=== PATIENT | male | born 1940 | race Caucasian/White ===

== ENCOUNTER 2017-04-04 13:33 | Emergency (ER) | payer BC, OTHER ==
[~2017-04-04] VITALS: Ht 175.3 cm; Wt 93.8 kg
[~2017-04-04 13:33] MED LIST: AMLO10TA4 PO; ASPI81TA21 PO; ATEN25TA PO; ATV/1 PO; CITA40TA12 PO; DIPH25CA5 PO; DVN/160 PO; EZET10TA47 PO; FISHOIL PO; FORMOTEROL 20 MCG/2 ML INH; FURO20TA PO; LEVO50TA PO; MAGN400T5 PO; MULTTAB58 PO; NITR0.4S UT; OXGN; PRAV20TA PO; PRED50TA PO; RANI150T3 PO; SPRIN/30 INH; [UNRECOGNIZED DRUG - OTHER] PO
[2017-04-04 13:42] VITALS: TEMP 36.8; Ht 175.3 cm; Wt 93.8 kg
[2017-04-04] MEDS ORDERED: PLMINSR5 INH (14:17)
[2017-04-04] MEDS ORDERED: TERA5CAP PO (14:17)
[2017-04-04] MEDS ORDERED: ALBINS/ INH (14:17)
[2017-04-04] MEDS ORDERED: UMEC1AER INH (14:17)
[2017-04-04] MEDS ORDERED: PRED20TA PO (14:17)
[2017-04-04] MEDS ORDERED: ATRINSX NEB (14:17)
[2017-04-04] MEDS ORDERED: LOSA50TA6 PO (14:17)
[2017-04-04] MEDS ORDERED: AMLO-110 PO (14:17)
[2017-04-04] MEDS ORDERED: LEVO1TAB33 PO (14:17)
[2017-04-04] MEDS ORDERED: PRAV80TA2 PO (14:17)
--- NOTE | 2017-04-04 14:28 | EMERGENCY ROOM VISIT NOTE ---
History First contact with patient: 13:48 Chief Complaint: ABDOMINAL PAIN Stated Complaint: ABDOMINAL PAIN, NOT FEELING WELL Nursing Triage Summary: i have hernia its causing constipation denies n/v more sob with exertion pt has copd and is on second zpack decrease appetite History of Present Illness The patient is a 76 year old male with COPD on Home O2 4L at night, CAD, AAA who presents to the Emergency Room with complaints of abdominal discomfort and constipation. Abdominal discomfort is constant , 5/10 intensity, and attributes it to the umbilical hernia. Pain relieved by eating. He also reports no having regular stools. He had a bowel movement today but feels it was inadequate. He denies N/V, fever, chills, hematemesis or hematochezia, diarrhea. He reports cough, SOB at baseline and fatigue. Source of History: patient, family Position: abdomen Symptom Intensity: mild Quality: dull Timing: constant Modifying Factors (Relieving): eating Associated Symptoms: + abdominal pain, No fevers, No chills, No nausea, No vomiting, No melena, No hematochezia Review of Systems Pt denies headache, change in vision, fevers, nausea, vomiting, diarrhea, pain with urination, and melena. Otherwise per HPI Social History Smoking Status: Former Smoker Alcohol Use: none Drug Use: none Marital Status: Occupation Status: retired Current/Historical Medications Scheduled Amlodipine (Norvasc), 5 MG PO DAILY Aspirin Enteric Coated (Ecotrin Or Generic), 81 MG PO DAILY Atenolol (Tenormin), 12.5 MG PO DAILY Budesonide (Pulmicort Respules 0.5MG/2ML), 2 ML INH BID Cephalexin Monohydrate (Keflex), 1 CAP PO QID Citalopram Hydrobromide (Celexa), 50 MG PO DAILY Furosemide (Lasix), 20 MG PO 5XWK Home O2 Therapy (Oxygen), 2 LITERS NA PRN Ipratropium [place] (Atrovent 0.02% Soln), 2.5 ML NEB QID Levothyroxine Sodium (Synthroid), 50 MCG PO DAILY Lorazepam (Ativan), 1 MG PO TID PRN Losartan Potassium (Cozaar), 50 MG PO DAILY Nitroglycerin (Nitrostat), 0.4 MG UT PRN Polyethylene Glycol 3350 (Miralax), 17 GM PO DAILY Pravastatin Sodium (Pravastatin Sodium), 80 MG PO DAILY Ranitidine Hcl (Zantac), 150 MG PO DAILY Terazosin (Hytrin), 5 MG PO HS Umeclidinium-Vilanterol (Anoro Ellipta 62.5-25 Mcg/INH), 1 PUFF INH DAILY Scheduled PRN Albuterol Sulf (Proventil 0.083% 2.5MG/3ML), 2.5 MG INH Q4H PRN for Wheezing Levofloxacin (Levaquin), 500 MG PO DAILY PRN for RESCUE KIT Prednisone (Prednisone), 40 MG PO DAILY PRN for RESCUE KIT Physical Exam Vital Signs Date Time Temp Pulse Resp B/P (MAP) Pulse Ox O2 Delivery O2 Flow Rate FiO2 04/04/17 15:35 69 16 134/56 93 Room Air 04/04/17 13:42 36.8 65 20 106/67 92 Physical Exam GENERAL: alert, no distress, non-toxic EYE EXAM: normal conjunctiva, PERRL and EOM's grossly intact OROPHARYNX: no exudate, no erythema, lips, buccal mucosa, and tongue normal and mucous membranes are moist NECK: supple, no nuchal rigidity, no adenopathy, non-tender LUNGS: Clear to auscultation. Normal chest wall mechanics HEART: no murmurs, S1 normal and S2 normal ABDOMEN: abdomen soft, non-tender, umbilical hernia reducible, no sign of strangulation, normo-active bowel sounds, no masses, no rebound or guarding. UPPER EXTREMITIES: upper extremities are grossly normal. LOWER EXTREMITIES: No pitting edema. NEURO EXAM: Normal sensorium, cranial nerves II-XII grossly intact, normal speech Medical Decision & Procedures Laboratory Results 04/04/17 14:33 Red Blood Count 4.53, Mean Corpuscular Volume 90.3, Mean Corpuscular Hemoglobin 30.7, Mean Corpuscular Hemoglobin Concent 34.0, Mean Platelet Volume 10.3, Neutrophils (%) (Auto) 75.0, Lymphocytes (%) (Auto) 13.3, Monocytes (%) (Auto) 10.6, Eosinophils (%) (Auto) 0.5, Basophils (%) (Auto) 0.1, Neutrophils # (Auto ) 6.57, Lymphocytes # (Auto) 1.16, Monocytes # (Auto) 0.93, Eosinophils # (Auto ) 0.04, Basophils # (Auto) 0.01 04/04/17 14:33 Test 04/04/17 14:33 04/04/17 15:05 White Blood Count 8.75 K/uL (4.8-10.8) Red Blood Count 4.53 M/uL (4.7-6.1) Hemoglobin 13.9 g/dL (14.0-18.0) Hematocrit 40.9 % (42-52) Mean Corpuscular Volume 90.3 fL (80-100) Mean Corpuscular Hemoglobin 30.7 pg (25-34) Mean Corpuscular Hemoglobin Concent 34.0 g/dl (32-36) Platelet Count 216 K/uL (130-400) Mean Platelet Volume 10.3 fL (7.4-10.4) Neutrophils (%) (Auto) 75.0 % Lymphocytes (%) (Auto) 13.3 % Monocytes (%) (Auto) 10.6 % Eosinophils (%) (Auto) 0.5 % Basophils (%) (Auto) 0.1 % Neutrophils # (Auto) 6.57 K/uL (1.4-6.5) Lymphocytes # (Auto) 1.16 K/uL (1.2-3.4) Monocytes # (Auto) 0.93 K/uL (0.11-0.59) Eosinophils # (Auto) 0.04 K/uL (0-0.5) Basophils # (Auto) 0.01 K/uL (0-0.2) RDW Standard Deviation 43.5 fL (36.4-46.3) RDW Coefficient of Variation 13.2 % (11.5-14.5) Immature Granulocyte % (Auto) 0.5 % Immature Granulocyte # (Auto) 0.04 K/uL (0.00-0.02) Anion Gap 5.0 mmol/L (3-11) Est Creatinine Clear Calc Drug Dose 57.3 ml/min Estimated GFR () 63.5 Estimated GFR (Non- 54.8 BUN/Creatinine Ratio 12.0 (10-20) Calcium Level 8.6 mg/dl (8.5-10.1) Total Bilirubin 0.7 mg/dl (0.2-1) Aspartate Amino Transf (AST/SGOT) 17 U/L (15-37) Alanine Aminotransferase (ALT/SGPT) 24 U/L (12-78) Alkaline Phosphatase 71 U/L (45-117) Total Protein 6.5 gm/dl (6.4-8.2) Albumin 3.3 gm/dl (3.4-5.0) Globulin 3.2 gm/dl (2.5-4.0) Albumin/Globulin Ratio 1.0 (0.9-2) Lipase 302 U/L (73-393) Urine Color YELLOW Urine Appearance CLEAR (CLEAR) Urine pH 5.0 (4.5-7.5) Urine Specific [place] 1.021 (1.000-1.030) Urine Protein 2+ (NEG) Urine Glucose (UA) NEG (NEG) Urine Ketones TRACE (NEG) Urine Occult Blood 3+ (NEG) Urine Nitrite NEG (NEG) Urine Bilirubin NEG (NEG) Urine Urobilinogen NEG (NEG) Urine Leukocyte Esterase NEG (NEG) Urine WBC (Auto) 1-5 /hpf (0-5) Urine RBC (Auto) 10-30 /hpf (0-4) Urine Hyaline Casts (Auto) 5-10 /lpf (0-5) Urine Epithelial Cells (Auto) 5-10 /lpf (0-5) Urine Bacteria (Auto) NEG (NEG) Laboratory results per my review. Medical Decision 76 yo M with h/o COPD on Home O2 4L at night, CAD, AAA, Umbilical Hernia presenting with abdominal discomfort, non-tender on exam, afebrile on arrival Differential diagnoses includes but is not limited to gastritis, peptic ulcer disease, GERD, constipation, gallbladder disease, pancreatitis, small bowel obstruction, ischemic bowel, irritable bowel disease, irritable bowel syndrome, appendicitis , diverticulitis, malignancy, hernia, urinary tract infection CBC unremarkable CMP unremarkable Lipase negative Abdominal XR: no acute changes Head Trauma GCS Score: 15 Medication Reconcilliation Current Medication List: was personally reviewed by me Impression Primary Impression: Abdominal discomfort Additional Impression: Hematuria Departure Information Dispostion Home / Self-Care Condition GOOD Prescriptions Cephalexin Monohydrate (Keflex) 500 Mg Cap 1 CAP PO QID for 7 Days, #28 CAP Prov: Gigi Chanel MD 04/04/17 Polyethylene Glycol 3350 (MIRALAX) 1 Pow Pow 17 GM PO DAILY for Constipation for 7 Days, #119 GM Prov: Gigi Chanel MD 04/04/17 Referrals Dahlia Real M.D. (PCP) Patient Instructions My [facility] Additional Instructions You were found to have a blood in your urine. You will placed on antibiotics ( Keflex) out of caution in case there is an infection in your bladder. Please take as prescribed. You will need to follow up with your primary care provider within a week. You will need to have your urine rechecked for blood at that time. You will also be given Miralax fo your symptoms of constipation for the next 7 days. Resident Tracking Resident Involvement: Resident Care Provided Care Provided: Adult ED Problem Qualifiers
[2017-04-04 14:48] LABS: BASO % 0.1 %; BASO ABS # 0.01 K/uL (0-0.2); EOS % 0.5 %; EOS ABS # 0.04 K/uL (0-0.5); HEMATOCRIT 40.9 % (42-52); HEMOGLOBIN 13.9 g/dL (14.0-18.0); IG# 0.04 K/uL (0.00-0.02); LYMPH % 13.3 %; LYMPH ABS # 1.16 K/uL (1.2-3.4); MEAN CELL VOLUME 90.3 fL (80-100); MEAN CORPUSCULAR HEMOGLOBIN 30.7 pg (25-34); MEAN PLATELET VOLUME 10.3 fL (7.4-10.4); MONO % 10.6 %; MONO ABS # 0.93 K/uL (0.11-0.59); NEUT ABS # 6.57 K/uL (1.4-6.5); PLATELET COUNT 216 K/uL (130-400); RED CELL DISTRIBUTION WIDTH CV 13.2 % (11.5-14.5); RED CELL DISTRIBUTION WIDTH SD 43.5 fL (36.4-46.3); WHITE BLOOD COUNT 8.75 K/uL (4.8-10.8)
--- NOTE | 2017-04-04 14:57 | EMERGENCY ROOM VISIT NOTE ---
ED Visit Note First contact with patient: 13:48 Resident Physician Supervision Note: I was present with Dr. Chanel during the history and exam. I discussed the case with the resident and agree with the findings and plan as documented in the note. Documented By: Saman Gonzales
[2017-04-04 15:07] LABS: ALBUMIN 3.3 gm/dl (3.4-5.0); CALCIUM 8.6 mg/dl (8.5-10.1); CREATININE 1.28 mg/dl (0.60-1.40); POTASSIUM 3.8 mmol/L (3.5-5.1)
[2017-04-04 15:10] LABS: TOTAL PROTEIN 6.5 gm/dl (6.4-8.2)
--- NOTE | 2017-04-04 15:27 | DIAGNOSTIC IMAGING REPORT ---
ABDOMEN 2VIEW W/PA CHEST RTN HISTORY: 76 years-old Male abdominal pain acute generalized abdominal pain COMPARISON: Chest radiograph 06/13/2011 TECHNIQUE: PA view of the chest with erect and supine views of the abdomen FINDINGS: Cardiomediastinal and hilar silhouettes are within normal limits. Unchanged subsegmental bibasilar atelectasis/scarring. There is no pneumothorax, pleural effusion, focal airspace consolidation or overt pulmonary edema. The bones of the chest appear grossly intact. Postsurgical changes of the left humeral head. Degenerative changes noted within the shoulders and spine. Aortobiiliac stent graft is noted along with tortuosity and dilation of the abdominal aorta. Bowel gas pattern is nonobstructive without pneumoperitoneum. No definite urolith or organomegaly. Multiple nondilated air-filled loops of small bowel are seen throughout the abdomen. IMPRESSION: 1. No acute cardiopulmonary process. 2. Nonobstructive bowel gas pattern without pneumoperitoneum. The above report was generated using voice recognition software. It may contain grammatical, syntax or spelling errors. Electronically signed by: Phuc Orozco M.D. 04/04/2017 3:26 PM Dictated Date/Time: 04/04/2017 3:23 PM
[2017-04-04] MEDS ORDERED: POLY335019 PO (15:49)
[2017-04-04] MEDS ORDERED: CEPH500C PO (15:49)
[2017-04-04 16:27] VITALS: BP 119/94; PULSE 68; O2SAT 93
== END 2017-04-04 16:22 | disposition home or self-care (01) ==
LOC: C.EDB 13:35 → C.EDA 16:22
DX: R10.9 Unspecified abdominal pain (principal); R31.9 Hematuria, unspecified; J44.9 Chronic obstructive pulmonary disease, unspecified; Z99.81 Dependence on supplemental oxygen; Z87.891 Personal history of nicotine dependence; Z79.82 Long term (current) use of aspirin; Z79.899 Other long term (current) drug therapy

== ENCOUNTER 2017-04-21 15:08 | Emergency (ER) | payer BC ==
[~2017-04-21] VITALS: Ht 175.3 cm; Wt 94.2 kg
[~2017-04-21 15:08] MED LIST changes: +ALBINS/ INH; +AMLO-110 PO; -AMLO10TA4 PO; +ATRINSX NEB; -DIPH25CA5 PO; -DVN/160 PO; -EZET10TA47 PO; -FISHOIL PO; -FORMOTEROL 20 MCG/2 ML INH; +LEVO1TAB33 PO; +LOSA50TA6 PO; -MAGN400T5 PO; -MULTTAB58 PO; +PLMINSR5 INH; -PRAV20TA PO; +PRAV80TA2 PO; +PRED20TA PO; -PRED50TA PO; -SPRIN/30 INH; +TERA5CAP PO; +UMEC1AER INH; -[UNRECOGNIZED DRUG - OTHER] PO
[2017-04-21 15:15] VITALS: TEMP 36.7; Ht 175.3 cm; Wt 94.2 kg
--- NOTE | 2017-04-21 16:12 | EMERGENCY ROOM VISIT NOTE ---
History Report prepared by Koko: Latrell Harris Under the Supervision of: Dr. [place] Laureano M.D. First contact with patient: 15:26 Chief Complaint: ABDOMINAL PAIN Stated Complaint: ABD PAIN Nursing Triage Summary: Patient presents ambulatory to triage with c/o abdominal pain States that he was evaluated on 04/04/17 for similar symptoms States he was treated for urinary issues but the "problem is my hernia" History of Present Illness The patient is a 76 year old male who presents to the Emergency Room with complaints of abdominal pain that started 2 weeks ago. He reports that he might have a hernia that feels like it is pulling against something. He states that he has never had abdominal surgery in the past. He states he has been taking Miralax for his constipation and has had normal bowel movement. He reports that he has fevers, chills, back pain, and numbness in his legs. He denies nausea, vomiting, hematuria, dysuria, bloody stool, chest pain, and groin pain. Of note he has an aneurysm with a stent in his leg. He has been taking antibiotics. He is currently taking Source of History: patient Onset: 2 weeks ago Position: abdomen Timing: constant Associated Symptoms: + fevers, + chills, + back pain, + numbness (in legs), No nausea, No vomiting, No melena, No hematochezia, No urinary symptoms Note: Pt denies groin pain. Review of Systems See HPI for pertinent positives & negatives. A total of 10 systems reviewed and were otherwise negative. Past Medical & Surgical Old medical records were reviewed. Nurse's notes were reviewed and I agree with. Social History Smoking Status: Former Smoker Alcohol Use: none Drug Use: none Marital Status: Occupation Status: retired Current/Historical Medications Scheduled Amlodipine (Norvasc), 5 MG PO QPM Aspirin Enteric Coated (Ecotrin Or Generic), 81 MG PO QPM Atenolol (Tenormin), 12.5 MG PO QPM Budesonide (Pulmicort Respules 0.5MG/2ML), 2 ML INH BID Citalopram Hydrobromide (Celexa), 60 MG PO QAM Furosemide (Lasix), 20 MG PO 5XWK Home O2 Therapy (Oxygen), 4 LITERS NA UD Ipratropium [place] (Atrovent 0.02% Soln), 2.5 ML NEB QID Levothyroxine Sodium (Synthroid), 50 MCG PO QAM Losartan Potassium (Cozaar), 50 MG PO QAM Pravastatin Sodium (Pravastatin Sodium), 80 MG PO QAM Ranitidine Hcl (Zantac), 150 MG PO QAM Terazosin (Hytrin), 5 MG PO HS Umeclidinium-Vilanterol (Anoro Ellipta 62.5-25 Mcg/INH), 1 PUFF INH DAILY Scheduled PRN Albuterol Sulf (Proventil 0.083% 2.5MG/3ML), 2.5 MG INH Q4H PRN for Wheezing Levofloxacin (Levaquin), 500 MG PO UD PRN for Rescue Kit Lorazepam (Ativan), 1 MG PO TID PRN for Anxiety Nitroglycerin (Nitrostat), 0.4 MG UT UD PRN for Chest Pain Prednisone (Prednisone), 40 MG PO UD PRN for Rescue Kit Allergies Coded Allergies: ROBERT Inhibitors (Verified Allergy, Unknown, unk, 06/13/11) Atorvastatin (Verified Allergy, Unknown, muscle pain, 06/13/11) Escitalopram (Verified Allergy, Unknown, unk, 06/13/11) Iodinated Contrast Media (Verified Allergy, Unknown, unk, 06/13/11) Rosuvastatin (Verified Allergy, Unknown, muscle pain, 06/13/11) Ibuprofen (Verified Adverse Reaction, Unknown, nausea/vomiting, 06/13/11) Physical Exam Vital Signs Date Time Temp Pulse Resp B/P (MAP) Pulse Ox O2 Delivery O2 Flow Rate FiO2 04/21/17 16:15 64 16 141/78 95 Room Air 04/21/17 15:15 36.7 69 16 154/66 94 Room Air Physical Exam General: Non-ill appearing elderly male in no acute distress. HEENT: Normal cephalic atraumatic. Pupils are equal round and reactive to light. Extraocular movements are intact. Oropharynx is pink with moist mucous membranes. No swelling of the mouth lips or tongue. Neck: Supple with a midline trachea. No meningeal signs or stiffness, no JVD or bruits. No Stridor. Chest: Clear to auscultation bilaterally. No wheezes or rhonchi. No increased work of breathing. Heart: regular rate and rhythm. Abdomen: Soft nontender, nondistended without rebound guarding or rigidity. Reducible umbilical hernia that is not significantly red. Extremities: No cyanosis clubbing or edema. No calf tenderness or assymetry Spine/Back. Non tender to palpation. No CVA tenderness Skin: Good turgor without rashes. Neurologic exam: Cranial nerves two through 12 are intact. Motor and sensation are intact and symmetrical throughout. Medical Decision & Procedures ER Provider Diagnostic Interpretation: Radiology results as stated below per my review and radiologist interpretation: CT OF THE ABDOMEN AND PELVIS WITHOUT CONTRAST, STONE PROTOCOL CLINICAL HISTORY: Abdominal pain. History of umbilical hernia and abdominal aortic aneurysm. COMPARISON STUDY: MRA of the abdomen September 06, 2006. TECHNIQUE: Helical axial images of the abdomen and pelvis were obtained without IV or oral contrast according to renal stone protocol. A dose lowering technique was utilized adhering to the principles of ALARA. FINDINGS: Multiple water attenuation hepatic lesions likely reflect cysts. Unenhanced images of the spleen and pancreas are unremarkable. There is no biliary or pancreatic ductal dilatation. There are suspected tiny gallstones within the gallbladder. There is no hydronephrosis. There is moderate renal cortical thinning. There is no evidence for a bowel obstruction. There is colonic diverticulosis without evidence for acute diverticulitis. A small fat-containing umbilical hernia is noted. There is no pneumatosis, free air or portal venous gas. Note is made of a bifurcated aortoiliac stent graft. Aneurysm sac measures 4 x 3.7 cm. There is no evidence for rupture. Note is made of a metallic density within the proximal aspect of the graft with a horizontal orientation. Note is made of a 5.5 x 4.6 x 6.5 cm intermediate attenuation left upper quadrant mass which likely arises from the lateral limb of the left adrenal gland. There is minimal adjacent infiltration. A few additional tiny bilateral adrenal lesions likely reflect adenomas. There are no suspicious osseous lesions. IMPRESSION: 1. 6.5 x 5.5 x 4.6 cm left adrenal mass with minimal adjacent infiltration. This is suboptimally assessed on this unenhanced exam. This may reflect an adenoma although is larger than expected for an adenoma. Additional considerations include metastasis, pheochromocytoma and adrenocortical carcinoma. A follow-up adrenal protocol CT is recommended on nonemergent basis. Although unlikely, adjacent infiltration raises the possibility of hemorrhage into a pre-existing lesion. 2. Status post post placement of bifurcated aortoiliac stent grafts. No evidence for rupture. Transversely oriented metallic density within the proximal aspect of the graft represents an age indeterminate finding of uncertain clinical significance. This could be correlated with previous postprocedural imaging. 3. Small fat-containing umbilical hernia. No bowel obstruction. Electronically signed by: Christian Boyd M.D. 04/21/2017 4:59 PM Dictated Date/Time: 04/21/2017 4:45 PM Laboratory Results 04/21/17 16:00 Red Blood Count 4.25, Mean Corpuscular Volume 89.2, Mean Corpuscular Hemoglobin 31.1, Mean Corpuscular Hemoglobin Concent 34.8, Mean Platelet Volume 9.9, Neutrophils (%) (Auto) 73.0, Lymphocytes (%) (Auto) 16.2, Monocytes (%) (Auto) 9.4, Eosinophils (%) (Auto) 1.0, Basophils (%) (Auto) 0.3, Neutrophils # (Auto) 4.86, Lymphocytes # (Auto) 1.08, Monocytes # (Auto) 0.63, Eosinophils # (Auto) 0.07, Basophils # (Auto) 0.02 04/21/17 16:00 Test 04/21/17 16:00 04/21/17 16:10 White Blood Count 6.67 K/uL (4.8-10.8) Red Blood Count 4.25 M/uL (4.7-6.1) Hemoglobin 13.2 g/dL (14.0-18.0) Hematocrit 37.9 % (42-52) Mean Corpuscular Volume 89.2 fL (80-100) Mean Corpuscular Hemoglobin 31.1 pg (25-34) Mean Corpuscular Hemoglobin Concent 34.8 g/dl (32-36) Platelet Count 237 K/uL (130-400) Mean Platelet Volume 9.9 fL (7.4-10.4) Neutrophils (%) (Auto) 73.0 % Lymphocytes (%) (Auto) 16.2 % Monocytes (%) (Auto) 9.4 % Eosinophils (%) (Auto) 1.0 % Basophils (%) (Auto) 0.3 % Neutrophils # (Auto) 4.86 K/uL (1.4-6.5) Lymphocytes # (Auto) 1.08 K/uL (1.2-3.4) Monocytes # (Auto) 0.63 K/uL (0.11-0.59) Eosinophils # (Auto) 0.07 K/uL (0-0.5) Basophils # (Auto) 0.02 K/uL (0-0.2) RDW Standard Deviation 44.0 fL (36.4-46.3) RDW Coefficient of Variation 13.6 % (11.5-14.5) Immature Granulocyte % (Auto) 0.1 % Immature Granulocyte # (Auto) 0.01 K/uL (0.00-0.02) Anion Gap 9.0 mmol/L (3-11) Est Creatinine Clear Calc Drug Dose 66.2 ml/min Estimated GFR () 75.4 Estimated GFR (Non- 65.1 BUN/Creatinine Ratio 11.4 (10-20) Calcium Level 8.7 mg/dl (8.5-10.1) Total Bilirubin 0.6 mg/dl (0.2-1) Direct Bilirubin 0.2 mg/dl (0-0.2) Aspartate Amino Transf (AST/SGOT) 17 U/L (15-37) Alanine Aminotransferase (ALT/SGPT) 19 U/L (12-78) Alkaline Phosphatase 69 U/L (45-117) Total Protein 6.8 gm/dl (6.4-8.2) Albumin 3.5 gm/dl (3.4-5.0) Lipase 183 U/L (73-393) Bedside Troponin I < 0.030 ng/ml (0-0.045) Laboratory studies as stated above per my review. ECG Per My Interpretation Indication: abdominal pain Rate (beats per minute): 61 Rhythm: normal sinus Findings: PVC (occasional), other (nonspecific ST abnormality) Comparison ECG Date: Compared to 06/15/2011, PVC's are now present. Otherwise, no change. ED Course 1526: Past medical records reviewed. The patient was evaluated in room A10, and a complete history and physical examination were performed. 1715: I spoke with the patient and updated him on his CT results. 1730: Upon reevaluation, the patient is doing well. I discussed the results and treatment plan with him. He verbalized agreement of the treatment plan. The patient was discharged home. Medical Decision Differential diagnoses include bowel obstruction, hernia, infection, viral illness, electrolyte and metabolic abnormality. This patient comes in as described above. He was placed in room A-10. he has been having abdominal pain has been going on for quite some time. He is concerned that this could be related to umbilical hernia. He has never had any abdominal surgery. He has no fever here. He does have some constipation although that has been treated with MiraLAX and he is doing okay in that regard. No urinary symptoms. No new numbness or weakness. He looks well on exam. IV access established blood work was obtained as well as urinalysis and culture. CAT scan was also obtained. CAT scan shows an adrenal mass which the patient says he knows about and is in the process of getting worked up. There are no other acute findings. There is a fat-containing umbilical hernia. There is no bowel obstruction or free air. He has no white count or fever to suggest infection. He has no acute electrolyte or metabolic abnormalities. Blood work was unremarkable. He feels good and would like to go home. I talked to the patient is daughter at length and think it is very important that he gets follow-up for the adrenal tumor. He has nothing to suggest pheochromocytoma at this point but may need further workup in that regard or biopsy or surgery. He should ensure that his bowels are moving adequately and drink plenty of fluids. Return if: worsening of symptoms, any new problems or concerns. They are happy the plan and he was discharged home. Medication Reconcilliation Current Medication List: was personally reviewed by me Blood Pressure Screening Patient's blood pressure: Elevated blood pressure Blood pressure disposition: Elevated BP felt to be situational Impression Primary Impression: Diffuse abdominal pain Additional Impression: Adrenal mass Scribe Attestation The scribe's documentation has been prepared under my direction and personally reviewed by me in its entirety. I confirm that the note above accurately reflects all work, treatment, procedures, and medical decision making performed by me. Departure Information Dispostion Discharge/Transfer to [facility] Dahlia Real M.D. (PCP) Forms Call Back Authorization, HOME CARE DOCUMENTATION FORM, IMPORTANT VISIT INFORMATION Patient Instructions My [facility] Additional Instructions Rest. Drink plenty of fluids. Continue to use your MiraLAX Return if: Worsening of symptoms, fever or chills, any new problems or concerns. Follow-up with your doctor this week for recheck. Your adrenal gland needs further evaluation and possibly further CAT scans. Problem Qualifiers
[2017-04-21 16:17] LABS: BASO % 0.3 %; BASO ABS # 0.02 K/uL (0-0.2); EOS ABS # 0.07 K/uL (0-0.5); HEMATOCRIT 37.9 % (42-52); HEMOGLOBIN 13.2 g/dL (14.0-18.0); IG# 0.01 K/uL (0.00-0.02); LYMPH % 16.2 %; LYMPH ABS # 1.08 K/uL (1.2-3.4); MEAN CELL VOLUME 89.2 fL (80-100); MEAN CORPUSCULAR HEMOGLOBIN 31.1 pg (25-34); MEAN CORPUSCULAR HGB CONC 34.8 g/dl (32-36); MEAN PLATELET VOLUME 9.9 fL (7.4-10.4); MONO % 9.4 %; MONO ABS # 0.63 K/uL (0.11-0.59); NEUT ABS # 4.86 K/uL (1.4-6.5); PLATELET COUNT 237 K/uL (130-400); RED CELL DISTRIBUTION WIDTH CV 13.6 % (11.5-14.5); WHITE BLOOD COUNT 6.67 K/uL (4.8-10.8)
[2017-04-21 16:34] LABS: ALBUMIN 3.5 gm/dl (3.4-5.0); CALCIUM 8.7 mg/dl (8.5-10.1); CREATININE 1.11 mg/dl (0.60-1.40); POTASSIUM 3.7 mmol/L (3.5-5.1)
[2017-04-21 16:37] LABS: TOTAL PROTEIN 6.8 gm/dl (6.4-8.2)
--- NOTE | 2017-04-21 17:01 | DIAGNOSTIC IMAGING REPORT ---
CT OF THE ABDOMEN AND PELVIS WITHOUT CONTRAST, STONE PROTOCOL CLINICAL HISTORY: Abdominal pain. History of umbilical hernia and abdominal aortic aneurysm. COMPARISON STUDY: MRA of the abdomen September 06, 2006. TECHNIQUE: Helical axial images of the abdomen and pelvis were obtained without IV or oral contrast according to renal stone protocol. A dose lowering technique was utilized adhering to the principles of ALARA. FINDINGS: Multiple water attenuation hepatic lesions likely reflect cysts. Unenhanced images of the spleen and pancreas are unremarkable. There is no biliary or pancreatic ductal dilatation. There are suspected tiny gallstones within the gallbladder. There is no hydronephrosis. There is moderate renal cortical thinning. There is no evidence for a bowel obstruction. There is colonic diverticulosis without evidence for acute diverticulitis. A small fat-containing umbilical hernia is noted. There is no pneumatosis, free air or portal venous gas. Note is made of a bifurcated aortoiliac stent graft. Aneurysm sac measures 4 x 3.7 cm. There is no evidence for rupture. Note is made of a metallic density within the proximal aspect of the graft with a horizontal orientation. Note is made of a 5.5 x 4.6 x 6.5 cm intermediate attenuation left upper quadrant mass which likely arises from the lateral limb of the left adrenal gland. There is minimal adjacent infiltration. A few additional tiny bilateral adrenal lesions likely reflect adenomas. There are no suspicious osseous lesions. IMPRESSION: 1. 6.5 x 5.5 x 4.6 cm left adrenal mass with minimal adjacent infiltration. This is suboptimally assessed on this unenhanced exam. This may reflect an adenoma although is larger than expected for an adenoma. Additional considerations include metastasis, pheochromocytoma and adrenocortical carcinoma. A follow-up adrenal protocol CT is recommended on nonemergent basis. Although unlikely, adjacent infiltration raises the possibility of hemorrhage into a pre-existing lesion. 2. Status post post placement of bifurcated aortoiliac stent grafts. No evidence for rupture. Transversely oriented metallic density within the proximal aspect of the graft represents an age indeterminate finding of uncertain clinical significance. This could be correlated with previous postprocedural imaging. 3. Small fat-containing umbilical hernia. No bowel obstruction. Electronically signed by: Christian Boyd M.D. 04/21/2017 4:59 PM Dictated Date/Time: 04/21/2017 4:45 PM
[2017-04-21 17:55] VITALS: BP 134/76; PULSE 66; O2SAT 96
== END 2017-04-21 17:57 | disposition home or self-care (01) ==
LOC: C.EDB 15:09 → C.EDA 17:57
DX: R10.9 Unspecified abdominal pain (principal); E27.9 Disorder of adrenal gland, unspecified; Z79.82 Long term (current) use of aspirin; Z99.81 Dependence on supplemental oxygen; Z87.891 Personal history of nicotine dependence; Z88.8 Allergy status to other drugs, medicaments and biological substances; Z91.041 Radiographic dye allergy status; Z88.6 Allergy status to analgesic agent

== ENCOUNTER 2021-09-15 14:13 | Inpatient (IN) ==
--- NOTE | 2021-09-15 14:42 | Emergency Department Note ---
Impression & Plan Acute exacerbation of chronic obstructive pulmonary disease, Adrenal tumor, Pneumonia, Cellulitis of leg, right, Hypoxia ED Provider Note NAME: IRVIN PALOMARES AGE: 80 SEX: M : 1940 ARRIVES VIA: Ambulance INFORMANT: Patient, EMS ED PROVIDER(S): Saman Gonzales DO CHIEF COMPLAINT: Shortness of breath HPI: The patient is a 80-year-old male who presented to the emergency department by ambulance for an evaluation of shortness of breath. The patient has had ongoing symptoms for the last few days. He notices a cough which was nonproductive. Patient describes swelling in his legs which appear to be worse on the right. He thinks he may have an infection in his leg. He has a history of cellulitis in the past. He also has a history of COPD was noted to have abnormal lung sounds. He did with bronchodilator therapy as well as IV Solu- Medrol prior to arrival. The patient is often seen by his family doctor. He started noticing worsening symptoms especially upon ambulation called 911. The patient states his symptoms are mildly improved at this time. He was noted to have oxygen saturation in the upper 80% region by the prehospital personnel. ROS: See above HPI for pertinent positives & negatives. A total of 10 systems reviewed and were otherwise negative. PAST MEDICAL HISTORY: See Below PAST SURGICAL HISTORY: See Below FAMILY HISTORY: See Below SOCIAL HISTORY: See Below HOME MEDICATIONS: See Below ALLERGIES: See Below VITALS: See Below PHYSICAL EXAMINATION: GENERAL: Patient is awake and alert. The patient is somewhat anxious appearing. EYES: The conjunctivae are clear. The pupils are round and reactive. EARS, NOSE, MOUTH AND THROAT: The nose is without any evidence of any deformity. NECK: The neck is nontender and supple. RESPIRATORY: Diminished breath sounds are noted throughout. There were scattered wheezing both upper lung saini. There was mild conversational dyspnea noted. CARDIOVASCULAR: Regular rate and rhythm noted there no murmurs rubs or gallops normal S1 normal S2. GASTROINTESTINAL: The abdomen is soft. Abdomen is nontender. MUSCULOSKELETAL/EXTREMITIES: There is no evidence of gross deformity full range of motion is noted in the hips and shoulders. SKIN: Bilateral pedal edema was noted right greater than left. There is significant erythema and swelling of the right lower extremity. NEUROLOGIC: Patient is awake alert and oriented x3 MEDICAL DECISION MAKING: The patient is a 80-year-old male who presented to the emergency department for an evaluation of difficulty breathing. I discussed the patient's laboratory and radiographic studies with him. He was having very significant difficulty prior to arrival and was treated with bronchodilator therapy as well as IV steroids prior to arrival. Given the patient's right lower extremity swelling it was unilateral I was concerned the patient may have venous thromboembolic disease. CT of the angiography of the chest was obtained. There was no signs of pulmonary embolism but there was no enlargement of his previously noted adrenal tumor. He also was found have signs of possible pneumonia. The patient was treated with IV antibiotics. I discussed the patient's condition with the on- call [facility] His breathing was significantly improved on reevaluation. I do feel he may be stable to go for Doppler of the leg now. Giv en his elevated D-dimer it is possible that he also has a DVT.. Triage Nursing notes reviewed. Prior medical records reviewed Vital Signs: reviewed and remarkable for hypoxia. Differential diagnosis: Reactive airway disease, pneumonia, pneumothorax, COPD, CHF, infections, cardiac ischemia, pulmonary embolism, musculoskeletal, gastrointestinal, as well as other pathologies. ER treatment provided: See below Diagnostics interpreted by me: ECG: EKG was obtained in the emergency department. My interpretation is normal sinus rhythm at 71 bpm. There is no ectopy. There was no acute ST segment abnormalities noted. This was compared to a tracing from April 21, 2017. No significant changes were noted. Cardiac Monitoring: An order was placed for continuous cardiac monitoring. The monitor shows a rate of 68 bpm with sinus rhythm. Laboratory studies: As stated above and show below. Imaging studies: See below Consultation(s): I discussed this case with Marissa who is on-call for the [facility] radha silva. ED COURSE: Procedures: none Critical Care: I have personally spent greater than 55 minutes of critical care time in the direct management of this patient. This includes bedside care, interpretation of diagnostic studies, and testing, discussion with consultants, patient, and family members, and other required patient management activities. This 55 minutes is in excess of all separately billable procedures. Past Med/Surg History Medical History Adrenal tumor Cellulitis COPD (chronic obstructive pulmonary disease) Social History Smoking Status: Former smoker Feels Safe at Home: Yes Allergies Allergies Allergy/AdvReac Type Severity Reaction Status Date / Time ROBERT Inhibitors Allergy Unknown unk Verified 06/13/11 10:38 atorvastatin Allergy Unknown muscle pain Verified 06/13/11 10:38 escitalopram Allergy Unknown unk Verified 06/13/11 10:38 Iodinated Contrast Media Allergy Unknown unk Verified 06/13/11 10:38 rosuvastatin Allergy Unknown muscle pain Verified 06/13/11 10:38 ibuprofen AdvReac Unknown nausea/vomi Verified 06/13/11 10:38 ting Home Meds Home Medications Medication Instructions Recorded Confirmed ATENOLOL (TENORMIN) 12.5 mg PO QPM ##0 06/13/11 Aspirin Enteric Coated (Ecotrin Or 81 mg PO QPM ##0 06/13/11 Generic) CITALOPRAM HYDROBROMIDE (CELEXA) 60 mg PO QAM ##0 06/13/11 FUROSEMIDE (LASIX) 20 mg PO 5XWK ##0 06/13/11 HOME O2 THERAPY (Oxygen) 4 liters NA UD ##0 06/13/11 LEVOTHYROXINE SODIUM (SYNTHROID) 50 mcg PO QAM ##0 06/13/11 LORAZEPAM (ATIVAN) 1 mg PO TID PRN Anxiety ##0 06/13/11 NITROGLYCERIN (NITROSTAT) 0.4 mg UT UD PRN Chest Pain ##0 06/13/11 Ranitidine Hcl (ZANTAC) 150 mg PO QAM ##0 06/13/11 ALBUTEROL SULF (PROVENTIL 0.083% 2.5 mg inhalation Q4H PRN Wheezing 04/04/17 2.5MG/3ML) #0 doses Amlodipine (Norvasc) 5 mg PO QPM #0 tabs 04/04/17 BUDESONIDE (PULMICORT RESPULES 2 ml inhalation BID #0 doses 04/04/17 0.5MG/2ML) IPRATROPIUM BROMIDE (Atrovent 2.5 ml NEB QID ##0 04/04/17 0.02% Soln) LOSARTAN POTASSIUM (COZAAR) 50 mg PO QAM #0 tabs 04/04/17 Levofloxacin (Levaquin) 500 mg PO UD PRN Rescue Kit #0 tabs 04/04/17 PRAVASTATIN SODIUM 80 mg PO QAM #0 tabs 04/04/17 Prednisone 40 mg PO UD PRN Rescue Kit #0 tabs 04/04/17 Terazosin (Hytrin) 5 mg PO HS #0 caps 04/04/17 Umeclidinium-Vilanterol (Anoro 1 puff inhalation DAILY ##0 04/04/17 Ellipta 62.5-25 Mcg/INH) Results & Data (ED) Vital Signs Vital Signs - 24 hr 09/15/21 14:18 09/15/21 15:00 Temperature 36.9 C Temperature Source Oral Pulse Rate 68 Pulse Rhythm Regular Pulse Strength Normal Respiratory Rate 20 Respiratory Effort / Characteristics Spontaneous Accessory Muscle Use Respiratory Depth Normal Respiratory Pattern Regular Blood Pressure 117/76 Blood Pressure Mean 89 Blood Pressure Position Lying Pulse Oximetry 93 94 Oxygen Delivery Method Nasal Cannula Nasal Cannula Oxygen Flow Rate 6 6 Sepsis Recent Fever Within 48 Hours No Sepsis New/Unexplained Change in Mental Status No Sepsis Action Taken by Nursing No Action Required Home Medications Current Medication List: was personally reviewed by me Laboratory Data Attestation: I reviewed the patient's lab results. Result diagrams: 09/15/21 14:38 09/15/21 14:38 Lab Results 09/15/21 09/15/21 09/15/21 Range/Units 14:38 14:38 14:38 WBC 10.54 (4.8-10.8) K/ul RBC 4.02 L (4.63-6.08) M/uL Hgb 12.1 L (14.0-18.0) g/dl Hct 36.1 L (40.1-51.0) % MCV 89.8 (80.0-100.0) fL MCH 30.1 (25.0-34.0) pg MCHC 33.5 (32.0-36.0) g/dL RDW Std Deviation 47.4 H (36.4-46.3) fL RDW Coeff of Louis 14.4 (11.5-14.5) % Plt Count 225 (130-400) K/uL MPV 10.1 (9.4-12.4) fL Immature Gran % (Auto) 1.4 % Neut % (Auto) 80.8 % Lymph % (Auto) 12.0 % [place] % (Auto) 5.3 % Eos % (Auto) 0.2 % Baso % (Auto) 0.3 % Neut # (Auto) 8.51 H (1.4-6.5) K/uL Lymph # (Auto) 1.27 (1.2-3.4) K/uL [place] # (Auto) 0.56 (0.24-0.82) K/uL Eos # (Auto) 0.02 (0-0.50) K/uL Baso # (Auto) 0.03 (0-0.2) K/uL Immature Gran # (Auto) 0.15 H (0.00-0.02) K/uL PT 13.2 H (9.0-12.0) Seconds INR 1.3 H (0.9-1.1) APTT 25.6 (21.0-31.0) Seconds PTT Ratio 0.9 D-Dimer 69632 H* (0-500) ug/L FEU VBG pH (7.36-7.41) VBG pCO2 (38-50) mmHg VBG pO2 mmHg VBG HCO3 mmol/L VBG O2 Saturation % VBG Base Excess mEq/L Sodium 134 L (136-145) mmol/L Potassium 3.7 (3.5-5.1) mmol/L Chloride 104 (98-107) mmol/L Carbon Dioxide 22 (21-32) mmol/L Anion Gap 8 (3-11) BUN 23 (6-23) mg/dl Creatinine 1.48 H (0.6-1.4) mg/dl Est Cr Clr Drug Dosing 48.0 ml/min Est GFR ( Amer) 51.8 ml/min Est GFR (Non-Af Amer) 44.7 ml/min BUN/Creatinine Ratio 15.5 (10-20) Glucose 152 H (70-99(Fasting)) mg/dl Calcium 8.3 L (8.5-10.1) mg/dl Magnesium 1.9 (1.7-2.4) mg/dl Total Bilirubin 0.7 (0.2-1.0) mg/dl AST 14 (13-39) U/L ALT 11 (7-52) U/L Alkaline Phosphatase 66 (34-104) U/L Troponin I High Sens 16.3 (0-20) pg/ml B-Natriuretic Peptide (0-100) pg/ml Total Protein 6.1 (6.0-8.3) gm/dl Albumin 3.0 L (3.4-5.0) gm/dl Globulin 3.1 (2.5-4.0) gm/dl Albumin/Globulin Ratio 1.0 (0.9-2) SARS-CoV-2 (PCR) (Negative) Influenza Type A (PCR) (Neg) Influenza Type B (PCR) (Neg) RSV (RT-PCR) (Neg) 09/15/21 09/15/21 09/15/21 Range/Units 14:38 15:13 15:13 WBC (4.8-10.8) K/ul RBC (4.63-6.08) M/uL Hgb (14.0-18.0) g/dl Hct (40.1-51.0) % MCV (80.0-100.0) fL MCH (25.0-34.0) pg MCHC (32.0-36.0) g/dL RDW Std Deviation (36.4-46.3) fL RDW Coeff of Louis (11.5-14.5) % Plt Count (130-400) K/uL MPV (9.4-12.4) fL Immature Gran % (Auto) % Neut % (Auto) % Lymph % (Auto) % [place] % (Auto) % Eos % (Auto) % Baso % (Auto) % Neut # (Auto) (1.4-6.5) K/uL Lymph # (Auto) (1.2-3.4) K/uL [place] # (Auto) (0.24-0.82) K/uL Eos # (Auto) (0-0.50) K/uL Baso # (Auto) (0-0.2) K/uL Immature Gran # (Auto) (0.00-0.02) K/uL PT (9.0-12.0) Seconds INR (0.9-1.1) APTT (21.0-31.0) Seconds PTT Ratio D-Dimer (0-500) ug/L FEU VBG pH 7.41 (7.36-7.41) VBG pCO2 42 (38-50) mmHg VBG pO2 34 mmHg VBG HCO3 27 mmol/L VBG O2 Saturation < 60.0 % VBG Base Excess 1.7 mEq/L Sodium (136-145) mmol/L Potassium (3.5-5.1) mmol/L Chloride (98-107) mmol/L Carbon Dioxide (21-32) mmol/L Anion Gap (3-11) BUN (6-23) mg/dl Creatinine (0.6-1.4) mg/dl Est Cr Clr Drug Dosing ml/min Est GFR ( Amer) ml/min Est GFR (Non-Af Amer) ml/min BUN/Creatinine Ratio (10-20) Glucose (70-99(Fasting)) mg/dl Calcium (8.5-10.1) mg/dl Magnesium (1.7-2.4) mg/dl Total Bilirubin (0.2-1.0) mg/dl AST (13-39) U/L ALT (7-52) U/L Alkaline Phosphatase (34-104) U/L Troponin I High Sens (0-20) pg/ml B-Natriuretic Peptide 981 H (0-100) pg/ml Total Protein (6.0-8.3) gm/dl Albumin (3.4-5.0) gm/dl Globulin (2.5-4.0) gm/dl Albumin/Globulin Ratio (0.9-2) SARS-CoV-2 (PCR) NEGATIVE (Negative) Influenza Type A (PCR) Negative (Neg) Influenza Type B (PCR) Negative (Neg) RSV (RT-PCR) Negative (Neg) Administered Medications Discontinued Medications Albuterol (Albut/Ipratrop 3mg/0.5mg Neb 3 Ml Vial) 3 ml NEB NOW STA; Protocol Stop: 09/15/21 17:02 Last Admin: 09/15/21 17:06 Dose: 3 ml Documented By: OL Diphenhydramine HCl (Diphenhydramine 50 Mg/Ml Vial) 25 mg IV NOW STA Stop: 09/15/21 16:18 Last Admin: 09/15/21 16:22 Dose: 25 mg Documented By: OL Famotidine (Pepcid 20mg Iv Push) 20 mg in 5 mls @ 2.5 mls/min IV NOW STA Stop: 09/15/21 16:18 Last Admin: 09/15/21 16:22 Dose: 2.5 mls/min Documented By: OL Ceftriaxone Sodium (Rocephin) 2,000 mg in 70 mls @ 140 mls/hr IV NOW STA Stop: 09/15/21 17:06 Last Admin: 09/15/21 17:04 Dose: 140 mls/hr Documented By: OL Ioversol (Optiray 320 125ml) 120 ml IV ONCE ONE Stop: 09/15/21 16:41 Last Admin: 09/15/21 16:40 Dose: 120 ml Documented By: [facility] Imaging Data Radiologist's Impression: Shoulder X-Ray 09/15/21 14:18 XR shoulder RT min 2V routine CLINICAL HISTORY: pain TECHNIQUE: 3 views of the right shoulder were obtained. Comparison: None available at the time of this dictation. FINDINGS: There is no evidence of an acute fracture. Joint spaces are well-preserved. The overlying soft tissues are unremarkable. The visualized portions of the lungs are clear. IMPRESSION: No evidence of acute osseous injury. ACT 112: Negative or not required by law. Electronically signed by: Cole Pyle M.D. 09/15/2021 4:15 PM Chest CTA 09/15/21 15:23 CHEST CTA for PULMONARY ARTERIES CT DOSE: 910.50 mGy.cm HISTORY: Shortness of breath. TECHNIQUE: Multiaxial CT images of the chest were performed following the intravenous administration of contrast to evaluate the pulmonary arteries. Maximal intensity projection images were also obtained. A dose lowering technique was utilized adhering to the principles of ALARA. COMPARISON STUDY: Abdomen and pelvis CT 04/21/2017. FINDINGS: There are few small hypodense lesions within the liver with the largest measuring 1.7 cm. These are similar to the prior study but are incompletely characterized on this single phase examination. The spleen and right adrenal gland are unremarkable. Significant increase in size in the circumscribed heterogeneous mass within the left upper quadrant. This is partially visualized on this study and measures 14 x 11 cm. This previously measured 6.5 x 5.5 cm. This appears to reside from the left adrenal gland. This slightly displaces the left kidney posteriorly. This also results in anterior displacement of the pancreatic tail. No mediastinal or hilar lymphadenopathy. The heart remains top normal in size. No pleural or pericardial effusions. Normal esophagus. Mild calcified plaque within the normal caliber thoracic aorta. No evidence for an aortic dissection. There is severe calcified plaque within the coronary arteries. Nondiagnostic evaluation of the bilateral lower lobe, right middle lobe, and lingular subsegmental pulmonary arteries due to the respiratory motion artifact. However, the remaining pulmonary arteries show no filling defects to suggest a pulmonary embolus. Postoperative changes within the left shoulder. No pneumothorax. Emphysema. Small amount of mucoid material within the trachea and left mainstem bronchus. There are scattered patchy and nodular airspace opacities within bilateral mid to lower lung zones. This most pronounced within the left lower lobe. Dominant nodular density within the periphery of the left upper lobe on image 164 measures 1 cm. IMPRESSION: 1. No evidence for pulmonary embolus. 2. Significant increase in size in a heterogeneous mass within the left upper quadrant measuring 14 x 11 cm. This appears to arise from the left adrenal gland and is highly suspicious for an adrenal cortical carcinoma, metastasis, or pheochromocytoma. Urology consultation recommended. 3. There are scattered patchy and nodular airspace opacities within bilateral mid to lower lung zones. This likely represents a pneumonia could be due to as piration. 4. Scattered peripheral pulmonary nodules within the mid to lower lung zones w hich could be due to the suspected infectious process. However, 3-[address] follow-up recommended to ensure resolution can't exclude the possibility of metastases. ACT 112: Positive. There are findings on this exam that require communication between the performing entity and the patient following Patient Test Result Information Act ([place] Act 112) guidelines. Electronically signed by: Juan Pablo Chu M.D. 09/15/2021 4:52 PM Discharge Plan Visit Data Chief Complaint: Illness Stated Complaint: SOB, EDEMA TO LEGS & AB., R SHOULDER PAIN ED Provider: Saman Gonzales Discharge Problem: Acute exacerbation of chronic obstructive pulmonary disease, Adrenal tumor, Pn eumonia, Cellulitis of leg, right, Hypoxia Patient Disposition: Being Evaluated by Hospitalist Forms Stand Alone Forms: My [facility] Prescriptions Prescriptions: No Action ATENOLOL (TENORMIN) 25 MG tablet 12.5 mg PO QPM Qty: 0 Aspirin Enteric Coated (Ecotrin Or Generic) 81 MG tablet 81 mg PO QPM Qty: 0 CITALOPRAM HYDROBROMIDE (CELEXA) 40 MG tablet 60 mg PO QAM Qty: 0 FUROSEMIDE (LASIX) 20 MG tablet 20 mg PO 5XWK Qty: 0 HOME O2 THERAPY (Oxygen) gas 4 liters NA UD Qty: 0 Label Comments: 4 LITERS WITH C PAP DURING ALL PERIODS OF SLEEP LEVOTHYROXINE SODIUM (SYNTHROID) 50 MCG tablet 50 mcg PO QAM Qty: 0 LORAZEPAM (ATIVAN) 1 MG tablet 1 mg PO TID PRN (Reason: Anxiety) Qty: 0 NITROGLYCERIN (NITROSTAT) 0.4 MG SUB 0.4 mg UT UD PRN (Reason: Chest Pain) Qty: 0 Label Comments: PLACE ONE TABLET UNDER THE TONGUE EVERY 5 MINUTES FOR UP TO 3 DOSES IF NEEDED FOR CHEST PAIN Ranitidine Hcl (ZANTAC) 150 MG tablet 150 mg PO QAM Qty: 0 ALBUTEROL SULF (PROVENTIL 0.083% 2.5MG/3ML) 2.5 MG/3 ML NEBULIZR-SOLN 2.5 mg Inhalation Q4H PRN (Reason: Wheezing) Qty: 0 Label Comments: USE IN PLACE OF RESCUE INHALER Amlodipine (Norvasc) 5 MG tablet 5 mg PO QPM Qty: 0 BUDESONIDE (PULMICORT RESPULES 0.5MG/2ML) 0.5 MG/2 ML NEBULIZR-SOLN 2 ml Inhalation BID Qty: 0 IPRATROPIUM BROMIDE (Atrovent 0.02% Soln) 2.5 ML NEBULIZR-SOLN 2.5 ml NEB QID Qty: 0 Label Comments: TAKE WITH ALBUTEROL LOSARTAN POTASSIUM (COZAAR) 50 MG tablet 50 mg PO QAM Qty: 0 Levofloxacin (Levaquin) 500 MG tablet 500 mg PO UD PRN (Reason: Rescue Kit) Qty: 0 Label Comments: RESCUE KIT FOR INCREASED SHORTNESS OF BREATH,COUGH OR WHEEZING PRAVASTATIN SODIUM 80 MG tablet 80 mg PO QAM Qty: 0 Prednisone 20 MG tablet 40 mg PO UD PRN (Reason: Rescue Kit) Qty: 0 Terazosin (Hytrin) 5 MG capsule 5 mg PO HS Qty: 0 Umeclidinium-Vilanterol (Anoro Ellipta 62.5-25 Mcg/INH) 1 AER AER 1 puff Inhalation DAILY Qty: 0 Referrals Referrals: Dahlia Real MD [Primary Care Provider] -
[2021-09-15 14:56] LABS: Basophils # (auto) 0.03 K/uL (0-0.2); Basophils % (auto) 0.3 %; Eosinophils # (auto) 0.02 K/uL (0-0.50); Eosinophils % (auto) 0.2 %; Hematocrit (blood only) 36.1 % (40.1-51.0); Hemoglobin 12.1 g/dl (14.0-18.0); Immature Granulocytes # (auto) 0.15 K/uL (0.00-0.02); Immature Granulocytes % (auto) 1.4 %; Lymphocytes # (auto) 1.27 K/uL (1.2-3.4); Mean Corpuscular Hemoglobin 30.1 pg (25.0-34.0); Mean Corpuscular Hgb Conc 33.5 g/dL (32.0-36.0); Mean Corpuscular Volume 89.8 fL (80.0-100.0); Mean Platelet Volume 10.1 fL (9.4-12.4); Monocytes # (auto) 0.56 K/uL (0.24-0.82); Monocytes % (auto) 5.3 %; Neutrophils # (auto) 8.51 K/uL (1.4-6.5); Neutrophils % (auto) 80.8 %; Platelet Count 225 K/uL (130-400); RDW Coefficient of Variation 14.4 % (11.5-14.5); RDW Standard Deviation 47.4 fL (36.4-46.3); Red Blood Count 4.02 M/uL (4.63-6.08); White Blood Count 10.54 K/ul (4.8-10.8)
[2021-09-15 15:15] LABS: INR 1.3 (0.9-1.1); Partial Thromboplastin Ratio 0.9; Partial Thromboplastin Time 25.6 Seconds (21.0-31.0); Prothrombin Time 13.2 Seconds (9.0-12.0)
[2021-09-15 15:19] LABS: Troponin I High Sensitivity 16.3 pg/ml (0-20)
[2021-09-15 15:23] LABS: D Dimer 16270 ug/L FEU (0-500)
[2021-09-15 15:31] LABS: Base Excess VBG 1.7 mEq/L; HCO3 VBG 27 mmol/L; Oxygen Saturation VBG < 60.0 %; PCO2 VBG 42 mmHg (38-50); PO2 VBG 34 mmHg; pH VBG 7.41 (7.36-7.41)
[2021-09-15 15:33] LABS: BUN Creatinine Ratio 15.5 (10-20); Bilirubin,Total 0.7 mg/dl (0.2-1.0); Calcium 8.3 mg/dl (8.5-10.1); Est GFR (African American) 51.8 ml/min; Est GFR (Non-African American) 44.7 ml/min; Globulin 3.1 gm/dl (2.5-4.0); Magnesium 1.9 mg/dl (1.7-2.4); Potassium 3.7 mmol/L (3.5-5.1); Total Protein 6.1 gm/dl (6.0-8.3)
[2021-09-15 15:55] LABS: Influenza A virus by PCR Negative (Neg); Influenza B virus by PCR Negative (Neg); RSV by PCR Negative (Neg); SARS CoV2 RNA(COVID-19) InHosp NEGATIVE (Negative)
--- NOTE | 2021-09-15 16:16 | XRay Report ---
XR shoulder RT min 2V routine CLINICAL HISTORY: pain TECHNIQUE: 3 views of the right shoulder were obtained. Comparison: None available at the time of this dictation. FINDINGS: There is no evidence of an acute fracture. Joint spaces are well-preserved. The overlying soft tissue s are unremarkable. The visualized portions of the lungs are clear. IMPRESSION: No evidence of acute osseous injury. ACT 112: Negative or not required by law. Electronically signed by: Cole Pyle M.D. 09/15/2021 4:15 PM
[2021-09-15] MEDS ORDERED: diphenhydrAMINE 50 MG/ML VIAL IV STA (16:17)
[2021-09-15] MEDS ORDERED: FAMOTIDINE 20MG IV PUSH 20 MG/5 ML SYR IV STA (16:17)
[2021-09-15] MEDS ORDERED: cefTRIAXone SODIUM 2,000 MG/70 ML BAG IV STA (16:37)
[2021-09-15] MEDS ORDERED: OPTIRAY 320 125ml IV ONE (16:40)
--- NOTE | 2021-09-15 16:53 | CT Scan Report ---
CHEST CTA for PULMONARY ARTERIES CT DOSE: 910.50 mGy.cm HISTORY: Shortness of breath. TECHNIQUE: Multiaxial CT images of the chest were performed following the intravenous administration of contrast to evaluate the pulmonary arteries. Maximal intensity projection images were also obtaine d. A dose lowering technique was utilized adhering to the principles of ALARA. COMPARISON STUDY: Abdomen and pelvis CT 04/21/2017. FINDINGS: There are few small hypodense lesions within the liver with the largest measuring 1.7 cm. T hese are similar to the prior study but are incompletely characterized on this single phase examinati on. The spleen and right adrenal gland are unremarkable. Significant increase in size in the circumsc ribed heterogeneous mass within the left upper quadrant. This is partially visualized on this study a nd measures 14 x 11 cm. This previously measured 6.5 x 5.5 cm. This appears to reside from the left a drenal gland. This slightly displaces the left kidney posteriorly. This also results in anterior disp lacement of the pancreatic tail. No mediastinal or hilar lymphadenopathy. The heart remains top rahel l in size. No pleural or pericardial effusions. Normal esophagus. Mild calcified plaque within the no rmal caliber thoracic aorta. No evidence for an aortic dissection. There is severe calcified plaque w ithin the coronary arteries. Nondiagnostic evaluation of the bilateral lower lobe, right middle lobe, and lingular subsegmental pulmonary arteries due to the respiratory motion artifact. However, the re maining pulmonary arteries show no filling defects to suggest a pulmonary embolus. Postoperative orellana ges within the left shoulder. No pneumothorax. Emphysema. Small amount of mucoid material within the trachea and left mainstem bronchus. There are scattered patchy and nodular airspace opacities within bilateral mid to lower lung zones. This most pronounced within the left lower lobe. Dominant nodular density within the periphery of the left upper lobe on image 164 measures 1 cm. IMPRESSION: 1. No evidence for pulmonary embolus. 2. Significant increase in size in a heterogeneous mass within the left upper quadrant measuring 14 x 11 cm. This appears to arise from the left adrenal gland and is highly suspicious for an adrenal cor tical carcinoma, metastasis, or pheochromocytoma. Urology consultation recommended. 3. There are scattered patchy and nodular airspace opacities within bilateral mid to lower lung zones . This likely represents a pneumonia could be due to aspiration. 4. Scattered peripheral pulmonary nodules within the mid to lower lung zones which could be due to th e suspected infectious process. However, 3-[address] follow-up recommended to ensure resolutio n can't exclude the possibility of metastases. ACT 112: Positive. There are findings on this exam that require communication between the performing entity and the patient following Patient Test Result Information Act ([place] Act 112) guidelines. Electronically signed by: Juan Pablo Chu M.D. 09/15/2021 4:52 PM
[2021-09-15] MEDS ORDERED: ALBUT/IPRATROP 3MG/0.5MG NEB 3 ML VIAL NEB STA (17:01)
--- NOTE | 2021-09-15 17:37 | History & Physical Report ---
Date of Service September 15, 2021 Assessment & Plan (1) Acute respiratory failure with hypoxia: (2) Acute exacerbation of chronic obstructive pulmonary disease: (3) Volume overload: (4) Pneumonia: Plan: This is a 80-year-old male with PMH of severe COPD and obstructive sleep apnea, CAD (PCI to RCA in 2007), hypertension, hyperlipidemia, incidentally noted renal mass who presents with worsening shortness of breath over the past few days. O2 saturation 95% on 6L NC O2 (not on O2 during day at baseline; noncompliant with 2L NC HS oxygen) No leukocytosis, VBG pH 7.41, d-dimer 16,270, pro-bnp 981, Cepheid PCR panel negative for covid, flu, RSV CTA chest negative for PE. Scattered patchy airspace opacities within bilat. mid to lower lung zones that likely represents a PNA. Scattered peripheral pulm nodules could be infectious but cannot exclude poss. of metastasis Given IV solumedrol en route. Continue prednisone 40mg daily Has completed 8/10 days of Levaquin course. Continue abx with Rocephin and doxy given prolonged qtc Appears volume overloaded on exam. No h/o CHF but issues with lasix compliance for BLE edema. Given 40mg IV Lasix in ED. Weight at baseline. Monitor volume status closely. 2D echo ordered Continue supplemental o2 (5) Cellulitis of leg, right: Plan: R>L lower extremity pitting edema with overlying warmth and erythema D-dimer >16,000. Venous doppler ordered to evaluate for DVT Given IV Lasix in ED x 1 Receiving abx as above Wound care nurse for open wounds (6) Adrenal tumor: Plan: Incidentally seen on imaging in 2016 and increasing in size since, patient did not follow up for appointments per 2018 notes Chest CTA with significant increase in size in a heterogeneous mass within the left upper quadrant measuring 14 x 11 cm. This appears to arise from the left adrenal gland and is highly suspicious for an adrenal cortical carcinoma, metastasis, or pheochromocytoma. Urology consultation recommended Educated on importance of outpatient follow-up; patient states he is not interested in follow up at this time (7) CAD (coronary artery disease): Plan: S/p stent in 2007. Stable. Continue aspirin, statin, beta nilson (8) CKD (chronic kidney disease), stage III: Plan: Cr at baseline ~1.5. Monitor with daily BMP (9) Hypertension: Plan: Normotensive. Continue home amlodipine, losartan, lasix (10) Hypothyroidism: Plan: Continue levothyroxine (11) MARY ALICE (obstructive sleep apnea): (12) Nocturnal hypoxemia: Plan: Noncompliant with CPAP HS DVT Ppx: SQ lovenox Code status: FULL PCP: Farhan Dispo: Admit to PCU Patient seen in collaboration with Dr. Gayle. Please see addendum. History of Present Illness Chief Complaint: Shortness of breath Primary Care Provider: Dahlia Real MD This is a 80-year-old male with PMH of severe COPD and obstructive sleep apnea, CAD (PCI to RCA in 2007), hypertension, hyperlipidemia, incidentally noted renal mass who presents with worsening shortness of breath over the past few days. Endorses nonproductive cough and swelling in legs which is worse in right. Had a cold a week ago and then started rescue antibiotic Levaquin which she has completed all but 2 days of. Also noting increased swelling in right lower extremity over the past 2 weeks with redness and warmth as well as clear drainage from open wound on back of his heel. Has not wanted to seek medical attention for this. When shortness of breath was more progressive earlier today, patient called 911 with oxygen saturation noted to be in the upper 80s. Received breathing treatment and IV Solu-Medrol prior to arrival. Has been prescribed 2 L oxygen at night with CPAP but is noncompliant. Lives alone and manages medications. Poor historian. Denies any fever or chills. No congestion, chest pain or wheezing. No nausea, vomiting or abdominal pain. No dysuria. Endorses frequent urination. No diarrhea or constipation. Allergies Allergy/AdvReac Type Severity Reaction Status Date / Time ROBERT Inhibitors Allergy Unknown unk Verified 06/13/11 10:38 atorvastatin Allergy Unknown muscle pain Verified 06/13/11 10:38 escitalopram Allergy Unknown unk Verified 06/13/11 10:38 Iodinated Contrast Media Allergy Unknown unk Verified 06/13/11 10:38 rosuvastatin Allergy Unknown muscle pain Verified 06/13/11 10:38 ibuprofen AdvReac Unknown nausea/vomi Verified 06/13/11 10:38 ting Home Medications Medication Instructions Recorded Confirmed Type albuterol sulfate 90 mcg/actuation 1 inh inhalation QID PRN Shortness 09/15/21 09/15/21 History aerosol inhaler (Ventolin HFA) Of Breath Or Wheezing amlodipine 2.5 mg tablet 2.5 mg PO DAILY 09/15/21 09/15/21 History aspirin 81 mg capsule 81 mg PO DAILY 09/15/21 09/15/21 History atenolol 25 mg tablet 12.5 mg PO DAILY 09/15/21 09/15/21 History budesonide 0.5 mg/2 mL suspension 0.5 mg inhalation BID 09/15/21 09/15/21 History for nebulization citalopram 40 mg tablet 60 mg PO DAILY 09/15/21 09/15/21 History famotidine 20 mg tablet 20 mg PO DAILY 09/15/21 09/15/21 History fluticasone fur. 100 mcg-umeclid 1 inh inhalation DAILY 09/15/21 09/15/21 History 62.5 mcg-vilant 25 mcg inhalat.powder (Trelegy Ellipta) furosemide 20 mg tablet 20 mg PO Q2D 09/15/21 09/15/21 History levofloxacin 500 mg tablet 500 mg PO DAILY 09/15/21 09/15/21 History levothyroxine 50 mcg tablet 50 mcg PO DAILY 09/15/21 09/15/21 History losartan 100 mg tablet 100 mg PO DAILY 09/15/21 09/15/21 History nitroglycerin 0.4 mg sublingual 0.4 mg sublingual UD 09/15/21 09/15/21 History tablet (Nitrostat) pravastatin 80 mg tablet 80 mg PO DAILY 09/15/21 09/15/21 History tamsulosin 0.4 mg capsule 0.4 mg PO MOWEFR@0900 09/15/21 09/15/21 History terazosin 10 mg capsule 10 mg PO HS 09/15/21 09/15/21 History vitamin B complex 1 cap PO DAILY 09/15/21 09/15/21 History Past Med/Surg History Medical History Adrenal tumor CAD (coronary artery disease) Cellulitis CKD (chronic kidney disease), stage III COPD (chronic obstructive pulmonary disease) Hypertension Hypothyroidism Nocturnal hypoxemia MARY ALICE (obstructive sleep apnea) Type 2 diabetes mellitus Surgical History S/P AAA repair 2009 at [facility] [place] Stented coronary artery RCA 2008 Family History Other Diabetes Heart disease Social History Smoking Status: Former smoker packs per day: 2; Years Smoked: 40; Smoking End Date: 2006; Second Hand Exposure: Yes; Do You Dip or Chew Tobacco: No; Tobacco Cessation Education Requested by Patient: No Hx Alcohol Use: No Hx Substance Use: No Preferred Language: Filipino Cherry Cutter Required: No Beliefs That Will Affect Care: None Current Living Situation: Alone Current Living Situation Comment: Daughter goes to her Dad's house daily and calls daily Other Information That Helps Us Care for You: No Feels Safe at Home: Yes Safety Concerns: Feels Safe At This Time Assistive Devices: Glasses Review of Systems Review of Systems: At least ten systems reviewed and negative except as noted in the HPI. Physical Exam Physical Exam: General Appearance: WD/WN, vitals as above, NAD, sitting up in chair, obese, conversational dyspnea Head: normocephalic, atraumatic Eyes: normal inspection, PERRL, conjunctivae normal, anicteric sclerae ENT: external ear and nose normal, oropharynx normal Neck: normal visual inspection, trachea midline, no thyromegaly Respiratory: Increased respiratory effort, bibasilar crackles, poor air movement bilaterally, no wheezing. + accessory muscle use Cardiovascular: regular rate, rhythm, no murmur, normal peripheral pulses, 2-3+ pitting edema RLE, 1+ LLE Chest: normal inspection of chest Abdomen/GI: normal bowel sounds, soft but distended, nontender, no he patosplenomegaly Extremities/Musculoskeletal: no cyanosis or clubbing, extremities motor strength 5/5 Neurologic: PERRL, EOMI, accommodation nl, no face palsy, no dysarthria, CN's II-XI intact bilaterally and moves all extremities Psychiatric: A+Ox3, euthymic affect Skin: no rashes, normal color, warm/dry. RLE with erythema and warmth overlying extremity with serous drainage. Open wound on posterior aspect near heal, + foul odor to drainage Results & Data Results & Data ([facility]) Vital Signs (Past 12 Hours) Vital Signs Temp Pulse Resp BP Pulse Ox O2 Del Method O2 Flow Rate 09/15/21 15:00 94 Nasal Cannula 6 09/15/21 14:18 36.9 C 68 20 117/76 93 Nasal Cannula 6 Laboratory Results Short CBC 09/15/21 Range/Units 14:38 WBC 10.54 (4.8-10.8) K/ul Hgb 12.1 L (14.0-18.0) g/dl Hct 36.1 L (40.1-51.0) % Plt Count 225 (130-400) K/uL BMP 09/15/21 14:38 Sodium 134 L Potassium 3.7 Chloride 104 Carbon Dioxide 22 BUN 23 Creatinine 1.48 H Glucose 152 H Calcium 8.3 L Liver Function 09/15/21 Range/Units 14:38 Total Bilirubin 0.7 (0.2-1.0) mg/dl AST 14 (13-39) U/L ALT 11 (7-52) U/L Alkaline Phosphatase 66 (34-104) U/L Albumin 3.0 L (3.4-5.0) gm/dl Diagnostic Findings Shoulder X-Ray 09/15/21 14:18 XR shoulder RT min 2V routine CLINICAL HISTORY: pain TECHNIQUE: 3 views of the right shoulder were obtained. Comparison: None available at the time of this dictation. FINDINGS: There is no evidence of an acute fracture. Joint spaces are well-preserved. The overlying soft tissues are unremarkable. The visualized portions of the lungs are clear. IMPRESSION: No evidence of acute osseous injury. ACT 112: Negative or not required by law. Electronically signed by: Cole Pyle M.D. 09/15/2021 4:15 PM Chest CTA 09/15/21 15:23 CHEST CTA for PULMONARY ARTERIES CT DOSE: 910.50 mGy.cm HISTORY: Shortness of breath. TECHNIQUE: Multiaxial CT images of the chest were performed following the intravenous administration of contrast to evaluate the pulmonary arteries. Maximal intensity projection images were also obtained. A dose lowering technique was utilized adhering to the principles of ALARA. COMPARISON STUDY: Abdomen and pelvis CT 04/21/2017. FINDINGS: There are few small hypodense lesions within the liver with the largest measuring 1.7 cm. These are similar to the prior study but are incompletely characterized on this single phase examination. The spleen and right adrenal gland are unremarkable. Significant increase in size in the circumscribed heterogeneous mass within the left upper quadrant. This is partially visualized on this study and measures 14 x 11 cm. This previously m easured 6.5 x 5.5 cm. This appears to reside from the left adrenal gland. This slightly displaces the left kidney posteriorly. This also results in anterior displacement of the pancreatic tail. No mediastinal or hilar lymphadenopathy. The heart remains top normal in size. No pleural or pericardial effusions. Normal esophagus. Mild calcified plaque within the normal caliber thoracic aorta. No evidence for an aortic dissection. There is severe calcified plaque within the coronary arteries. Nondiagnostic evaluation of the bilateral lower lobe, right middle lobe, and lingular subsegmental pulmonary arteries due to the respiratory motion artifact. However, the remaining pulmonary arteries show no filling defects to suggest a pulmonary embolus. Postoperative changes within the left shoulder. No pneumothorax. Emphysema. Small amount of mucoid material within the trachea and left mainstem bronchus. There are scattered patchy and nodular airspace opacities within bilateral mid to lower lung zones. This most pronounced within the left lower lobe. Dominant nodular density within the periphery of the left upper lobe on image 164 measures 1 cm. IMPRESSION: 1. No evidence for pulmonary embolus. 2. Significant increase in size in a heterogeneous mass within the left upper quadrant measuring 14 x 11 cm. This appears to arise from the left adrenal gland and is highly suspicious for an adrenal cortical carcinoma, metastasis, or pheochromocytoma. Urology consultation recommended. 3. There are scattered patchy and nodular airspace opacities within bilateral mid to lower lung zones. This likely represents a pneumonia could be due to aspiration. 4. Scattered peripheral pulmonary nodules within the mid to lower lung zones which could be due to the suspected infectious process. However, 3-[address] follow-up recommended to ensure resolution can't exclude the possibility of metastases. ACT 112: Positive. There are findings on this exam that require communication between the performing entity and the patient following Patient Test Result Information Act ([place] Act 112) guidelines. Electronically signed by: Juan Pablo Chu M.D. 09/15/2021 4:52 PM Supervising Physician Co-Signing Physician Notes Attending addendum: Patient was seen and examined in telemetry unit He has been chronically shortness of breath but the breathing has gotten worse for the last 1 week or so Also complains to of increasing leg swelling more on the right than the left but denies any weight gain No chest pain and no palpitation On examination Sitting on a chair with moderate shortness of breath at rest Saturating normally on 2 L nasal cannula oxygen Hemodynamically stable and is afebrile Chest-decreased breath sounds bilaterally with minimal crackles at the bases Heart-S1-S2 regular no murmur appreciated Abdomen-distended. Nontender and bowel sound present Extremities-bilateral edema about 2+ right more than the left with minimal redness involving the right leg ELECTRONIC WARFARE SPECIALIST-alert, awake and oriented x3 His admission labs, EKG and imaging studies reviewed No evidence of pulmonary embolism on CTA Chest x-ray reported to be in mild CHF with BNP elevated to more than 900 Received 1 dose of Lasix 40 mg IV today and will need more down the line Finished a course of Levaquin recently but will continue with ceftriaxone and doxycycline for now Agree with assessment and plan as outlined above by SHANA Gutierrez Dr (1) Pneumonia Laterality: unspecified laterality Lung location: unspecified part of lung Pneumonia type: due to unspecified organism Qualified Code(s): J18.9 - Pneumonia, unspecified organism
[2021-09-15] MEDS ORDERED: FUROSEMIDE 40 MG/4 ML VIAL IV ONE (18:55)
--- NOTE | 2021-09-15 19:06 | Ultrasound Report ---
US venous doppler LE RT CLINICAL HISTORY: swelling TECHNIQUE: Right lower extremity real-time compression venous ultrasound with Color Doppler imaging. Utilizing real-time ultrasonic imaging multiple real time high-resolution ultrasonic images with comp ression and noncompression maneuvers of the deep venous system in addition to color doppler imaging w ere performed from the common femoral vein through the proximal calf veins. COMPARISON: None available at the time of this dictation. FINDINGS: Currently there is normal compressibility of the deep venous system from the common femoral vein thro ugh the proximal calf veins. No superficial venous thrombosis is identified. Impression: No evidence of deep venous thrombus. ACT 112: Negative or not required by law. Electronically signed by: Cole Pyle M.D. 09/15/2021 7:04 PM
[2021-09-15] MEDS ORDERED: ALBUTEROL HFA 8 GM INHALER INH PRN (19:16)
[2021-09-15] MEDS ORDERED: POLYETHYLENE (MIRALAX) 17 GM PACK PO PRN (19:16)
[2021-09-15] MEDS ORDERED: ACETAMINOPHEN 325 MG TAB PO PRN (19:16)
[2021-09-15] MEDS: ALBUT/IPRATROP 3MG/0.5MG NEB 3 ML VIAL NEB SCH ×2 (20:20→23:00)
[2021-09-15] MEDS: TERAZOSIN HCL 5 MG CAP PO SCH (21:42)
[2021-09-15] MEDS: ENOXAPARIN INJ 40 MG/0.4 ML SYR SQ SCH (21:43)
[2021-09-15] MEDS: DOXYCYCLINE HYCLATE 100 MG in DEXTROSE 5% 100 ML IV SCH (21:44)
[2021-09-16 00:28] LABS: Appearance Urine Clear (Clear); Bacteria Urine Automated Negative (Negative); Bilirubin Urine Negative (Negative); Blood Urine 2+ (Negative); Color Urine Yellow; Glucose Urine UA Negative (Negative); Ketones Urine Negative (Negative); Leukocyte Esterase Urine Trace (Negative); Nitrite Urine Negative (Negative); Protein Urine Trace (Negative); RBC Urine Automated 0-4 /hpf (0-4); Urobilinogen Urine Negative (Negative)
[2021-09-16] MEDS: ALBUT/IPRATROP 3MG/0.5MG NEB 3 ML VIAL NEB SCH ×6 (03:07→22:57)
[2021-09-16] MEDS: LEVOTHYROXINE SODIUM 50 MCG TABLET PO SCH (05:37)
[2021-09-16 07:24] LABS: BUN Creatinine Ratio 16.9 (10-20); Calcium 8.2 mg/dl (8.5-10.1); Creatinine Clr Calc Pharmacy 40.3 ml/min; Est GFR (African American) 41.7 ml/min; Potassium 4.4 mmol/L (3.5-5.1)
[2021-09-16 07:31] LABS: Estimated Average Glucose 123 mg/dl; Hemoglobin A1C 5.9 % (4.5-5.6)
[2021-09-16] MEDS: VITAMIN B COMPLEX TAB PO SCH (08:08)
[2021-09-16] MEDS: CITALOPRAM 20 MG TAB PO SCH (08:08)
[2021-09-16] MEDS: predniSONE 20 MG TAB PO SCH (08:08)
[2021-09-16] MEDS: ASPIRIN 81 MG ECTAB PO SCH (08:08)
[2021-09-16] MEDS: PRAVASTATIN SOD 40 MG TAB PO SCH (08:09)
[2021-09-16] MEDS: UMECLIDINIUM/VILANTEROL 62.5/25MCG 7 PUFFS/INHALER INH SCH (08:09)
[2021-09-16] MEDS: ATENOLOL 25 MG TABLET PO SCH (08:09)
[2021-09-16] MEDS: FAMOTIDINE 20 MG TAB PO SCH (08:09)
[2021-09-16] MEDS: FLUTICASONE FUROATE 100MCG 14 PUFFS/INHALER INH SCH (08:10)
[2021-09-16 08:20] LABS: Hematocrit (blood only) 35.3 % (40.1-51.0); Hemoglobin 11.6 g/dl (14.0-18.0); Mean Corpuscular Hemoglobin 29.9 pg (25.0-34.0); Mean Corpuscular Hgb Conc 32.9 g/dL (32.0-36.0); Mean Platelet Volume 10.5 fL (9.4-12.4); Platelet Count 176 K/uL (130-400); RDW Coefficient of Variation 14.5 % (11.5-14.5); RDW Standard Deviation 48.1 fL (36.4-46.3); Red Blood Count 3.88 M/uL (4.63-6.08); White Blood Count 11.59 K/ul (4.8-10.8)
[2021-09-16] MEDS: DOXYCYCLINE HYCLATE 100 MG in DEXTROSE 5% 100 ML IV SCH ×2 (08:24→19:34)
[2021-09-16] MEDS: cefTRIAXone SODIUM 2,000 MG in DEXTROSE 5% 50 ML IV SCH (08:24)
[2021-09-16] MEDS: amLODIPine BESYLATE 5 MG TAB PO SCH (08:49)
[2021-09-16] MEDS ORDERED: amLODIPine BESYLATE 5 MG TAB PO SCH (09:00)
[2021-09-16] MEDS ORDERED: LOSARTAN POTASSIUM 50 MG TAB PO SCH (09:00)
--- NOTE | 2021-09-16 09:25 | Electrocardiogram Report ---
Test Reason : Blood Pressure : / mmHG Vent. Rate : 071 BPM Atrial Rate : 071 BPM P-R Int : 172 ms QRS Dur : 100 ms QT Int : 450 ms P-R-T Axes : 108 028 077 degrees QTc Int : 489 ms Sinus rhythm with Premature atrial complexes Nonspecific ST abnormality Prolonged QT Abnormal ECG When compared with ECG of 21-APR-2017 16:12, Premature ventricular complexes are no longer Present Premature atrial complexes are now Present Confirmed by Declan Goel ([id number]) on 09/16/2021 9:24:30 AM Referred By: REFERRED SELF Confirmed By:Declan Goel
[2021-09-16] MEDS ORDERED: FUROSEMIDE 40 MG/4 ML VIAL IV SCH (10:30)
--- NOTE | 2021-09-16 12:38 | Hospitalist Progress Note ---
Date of Service September 16, 2021 Assessment & Plan (1) Acute respiratory failure with hypoxia: (2) Acute exacerbation of chronic obstructive pulmonary disease: (3) Volume overload: (4) Pneumonia: (5) Cellulitis of leg, right: (6) Adrenal tumor: (7) CAD (coronary artery disease): (8) CKD (chronic kidney disease), stage III: (9) Hypertension: (10) Hypothyroidism: (11) MARY ALICE (obstructive sleep apnea): (12) Nocturnal hypoxemia: Plan 80 year old male with h/o COPD who presented to the ED with worsening shortness of breath for few days along with increasing leg swelling and non productive cough. On levaquin course as OP per patient. Oxygen saturation noted to be in upper 80s per EMS. CTA chest 09/15 1. No evidence for pulmonary embolus. 2. Significant increase in size in a heterogeneous mass within the left upper quadrant measuring 14 x 11 cm. This appears to arise from the left adrenal gland and is highly suspicious for an adrenal cortical carcinoma, metastasis, or pheochromocytoma. Urology consultation recommended. 3. There are scattered patchy and nodular airspace opacities within bilateral mid to lower lung zones. This likely represents a pneumonia could be due to aspiration. 4. Scattered peripheral pulmonary nodules within the mid to lower lung zones which could be due to the suspected infectious process. However, 3-[address] follow-up recommended to ensure resolution can't exclude the possibility of metastases. US RLE - no DVT Acute respiratory failure with hypoxia with PNA, COPD and volume overload- doesn't use oxygen at home, noted to be in upper 80s and now on NC - BNP 981, WBC 10, Hb 11.6. D dimer significantly elevated but no DVT PE in US and CT - Continue antibiotics for PNA, iv lasix, prednisone - Continue supplemental oxygen, wean down as tolerated - Will need 2 step O2 eval at discharge Bilateral PNA- seen in CT as above. Denies any aspiration issues. On Levaquin as OP, started here on rocephin/doxy which we will continue for now. RLE cellulitis- doesn't seem as impressive today. Already on antibiotics as above. Will continue and monitor. WOCN consulted COPD- No wheezes appreciated. On ABx, prednisone which we will continue. Continue trelegy. Lung nodules- infectious vs ?mets- recommended 3-[address] chest to ensure resolution vs mets. CKD3 with elevated Cr- baseline Cr of around 1.5, currently 1.7. Hold losartan. Monitor with lasix. Received contrast yesterday. Avoid nephrotoxics. Bilateral leg swelling R>>L- Echo pending. No DVT in RLE. - Will start on iv lasix and monitor response. - Recommend compression stocking and leg elevation. - Daily weight, continue I an Os. Monitor response, renal function and electrolytes. HTN- hold losartan d/t elevated Cr. Will increase amlodipine dose. Continue atenolol, terazosin, lasix Left adrenal mass- first seen in 2015 and now shows increasing size as noted above - Spoke with urology Dr Lopez who recommended OP work up. They will see him as OP sooner. CAD s/p stenting 2007- stable, on ASA, statin, betablocker MARY ALICE- non compliant with CPAP hs. Hypothyroidism- continue synthroid DVTppx- sc lovenox Dispo- On iv lasix, IV ABx pending clx results. Will need 2 step O2 eval and PT/OT eval. Admission and Anticipated Discharge Date Admission Date: September 15, 2021 Subjective He feels better and was wondering if he could go home. States he would get rescue kit with levaquin and prednisone when he gets COPD flare up- he was getting levaquin as OP (2 days remaining of 10 days) but he was not given prednisone. No fever, chills, cough, nausea, vomiting. Has LE edema with weeping on right side. States his legs are usually swollen. States he sleeps in a recliner. He does not use oxygen at home but here on NC. Physical Exam Physical Exam: General: Sitting comfortably in chair, not in distress, on IA HEENT: EOMI, [place], MMM Chest: Fair but decreased breath sounds with basilar rales, no wheezes CVS: Regular rate and rhythm, normal heart sounds, no murmur Abdomen: Soft, non tender, not distended, normal bowel sounds Neuro: Awake, alert, oriented, conversing well, non focal Extremities: 3+ LE edema R>L with weeping on right medial leg covered with dressing Results & Data Results & [facility] ([facility]) Vital Signs (Past 12 Hours) Vital Signs Temp Pulse Pulse Resp BP Pulse Ox O2 Del Method 09/16/21 11:29 36.4 C L 76 18 136/70 94 Nasal Cannula 09/16/21 10:41 68 20 96 Nasal Cannula 09/16/21 07:59 36.5 C 68 20 145/80 H 93 Nasal Cannula 09/16/21 07:42 Nasal Cannula 09/16/21 07:32 62 09/16/21 07:04 68 16 97 Nasal Cannula 09/16/21 03:46 36.9 C 71 20 136/82 97 Nasal Cannula 09/16/21 01:12 73 O2 Flow Rate 09/16/21 11:29 2 09/16/21 10:41 3 09/16/21 07:59 3 09/16/21 07:42 5 09/16/21 07:32 09/16/21 07:04 4 09/16/21 03:46 5 09/16/21 01:12 (1) Pneumonia Laterality: unspecified laterality Lung location: unspecified part of lung Pneumonia type: due to unspecified organism Qualified Code(s): J18.9 - Pneumonia, unspecified organism
[2021-09-16] MEDS: ENOXAPARIN INJ 40 MG/0.4 ML SYR SQ SCH (19:34)
[2021-09-16] MEDS: TERAZOSIN HCL 5 MG CAP PO SCH (21:56)
[2021-09-17] MEDS: ALBUT/IPRATROP 3MG/0.5MG NEB 3 ML VIAL NEB SCH ×7 (03:19→22:50)
[2021-09-17] MEDS: LEVOTHYROXINE SODIUM 50 MCG TABLET PO SCH (05:40)
[2021-09-17 06:38] LABS: Hematocrit (blood only) 33.7 % (40.1-51.0); Hemoglobin 11.1 g/dl (14.0-18.0); Mean Corpuscular Hemoglobin 29.9 pg (25.0-34.0); Mean Corpuscular Hgb Conc 32.9 g/dL (32.0-36.0); Mean Corpuscular Volume 90.8 fL (80.0-100.0); Mean Platelet Volume 10.6 fL (9.4-12.4); Platelet Count 208 K/uL (130-400); RDW Coefficient of Variation 14.7 % (11.5-14.5); RDW Standard Deviation 48.8 fL (36.4-46.3); Red Blood Count 3.71 M/uL (4.63-6.08); White Blood Count 14.62 K/ul (4.8-10.8)
[2021-09-17 07:04] LABS: BUN Creatinine Ratio 23.3 (10-20); Calcium 8.3 mg/dl (8.5-10.1); Creatinine Clr Calc Pharmacy 40.5 ml/min; Est GFR (Non-African American) 36.2 ml/min; Potassium 4.2 mmol/L (3.5-5.1)
[2021-09-17] MEDS: cefTRIAXone SODIUM 2,000 MG in DEXTROSE 5% 50 ML IV SCH (08:13)
[2021-09-17] MEDS: DOXYCYCLINE HYCLATE 100 MG in DEXTROSE 5% 100 ML IV SCH ×2 (08:13→20:23)
[2021-09-17] MEDS: FAMOTIDINE 20 MG TAB PO SCH (08:14)
[2021-09-17] MEDS: ATENOLOL 25 MG TABLET PO SCH (08:14)
[2021-09-17] MEDS: CITALOPRAM 20 MG TAB PO SCH (08:14)
[2021-09-17] MEDS: ASPIRIN 81 MG ECTAB PO SCH (08:15)
[2021-09-17] MEDS: predniSONE 20 MG TAB PO SCH (08:15)
[2021-09-17] MEDS: amLODIPine BESYLATE 5 MG TAB PO SCH (08:15)
[2021-09-17] MEDS: PRAVASTATIN SOD 40 MG TAB PO SCH (08:16)
[2021-09-17] MEDS: VITAMIN B COMPLEX TAB PO SCH (08:16)
[2021-09-17] MEDS: UMECLIDINIUM/VILANTEROL 62.5/25MCG 7 PUFFS/INHALER INH SCH (08:16)
[2021-09-17] MEDS: FLUTICASONE FUROATE 100MCG 14 PUFFS/INHALER INH SCH (08:17)
[2021-09-17] MEDS ORDERED: FUROSEMIDE 40 MG/4 ML VIAL IV SCH (09:00)
--- NOTE | 2021-09-17 16:17 | Hospitalist Progress Note ---
Date of Service September 17, 2021 Assessment & Plan (1) Acute respiratory failure with hypoxia: (2) Acute exacerbation of chronic obstructive pulmonary disease: (3) Volume overload: (4) Pneumonia: (5) Cellulitis of leg, right: (6) Adrenal tumor: (7) CAD (coronary artery disease): (8) CKD (chronic kidney disease), stage III: (9) Hypertension: (10) Hypothyroidism: (11) MARY ALICE (obstructive sleep apnea): (12) Nocturnal hypoxemia: Plan 80 year old male with h/o COPD who presented to the ED with worsening shortness of breath for few days along with increasing leg swelling and non productive cough. On levaquin course as OP per patient. Oxygen saturation noted to be in upper 80s per EMS. CTA chest 09/15 1. No evidence for pulmonary embolus. 2. Significant increase in size in a heterogeneous mass within the left upper quadrant measuring 14 x 11 cm. This appears to arise from the left adrenal gland and is highly suspicious for an adrenal cortical carcinoma, metastasis, or pheochromocytoma. Urology consultation recommended. 3. There are scattered patchy and nodular airspace opacities within bilateral mid to lower lung zones. This likely represents a pneumonia could be due to aspiration. 4. Scattered peripheral pulmonary nodules within the mid to lower lung zones which could be due to the suspected infectious process. However, 3-[address] follow-up recommended to ensure resolution can't exclude the possibility of metastases. US RLE - no DVT Acute respiratory failure with hypoxia with PNA, COPD and acute diastolic CHF- has oxygen at home but does not use, noted to be in upper 80s and now on NC - BNP 981, WBC 10, Hb 11.6. D dimer significantly elevated but no DVT PE in US and CT. Echo reviewed- normal EF but diastolic dysfunction - Continue antibiotics for PNA, iv lasix, prednisone - Continue supplemental oxygen, wean down as tolerated - Needs 3 L/min oxygen with activities per 2 step O2 eval Acute on chronic diastolic CHF with dyspnea and bilateral LE edema - BNP 981, Echo with EF 55-60% but grade 1 diastolic dysfunction. No DVT in RLE. - Still with 3+ LE edema. Will uptitrate lasix and monitor response. - Recommend compression stocking and leg elevation. - Daily weight, continue I an Os. Monitor response, renal function and electrolytes. Bilateral PNA- seen in CT as above. Denies any aspiration issues. On Levaquin as OP, started here on rocephin/doxy which we will continue for now. RLE cellulitis- Improving, Already on antibiotics as above. Will continue and monitor. WOCN consulted COPD- No wheezes appreciated. On ABx, prednisone which we will continue. Continue trelegy. Lung nodules- infectious vs ?mets- recommended 3-[address] chest to ensure resolution vs mets. CKD3 with elevated Cr- baseline Cr of around 1.5, currently 1.7. Hold losartan. Monitor with lasix. Received contrast the other day. Avoid nephrotoxics. HTN- hold losartan d/t elevated Cr. Continue amlodipine dose. Continue atenolol, terazosin, lasix Left adrenal mass- first seen in 2016 and now shows increasing size as noted above - Spoke with urology Dr Lopez who recommended OP work up. They will see him as OP sooner. CAD s/p stenting 2007- stable, on ASA, statin, betablocker MARY ALICE- non compliant with CPAP hs. Hypothyroidism- continue synthroid DVT ppx- sc lovenox Dispo- On iv lasix for volume optimization. Admission and Anticipated Discharge Date Admission Date: September 15, 2021 Subjective He is adamant to go home stating he will feel much better once he is at home however his daughter at bedside disagrees and worry that he might have to come back right away as he lives by himself at home. He still has dyspnea and still has 3+ LE edema. He completed 2 step O2 eval and will need oxygen with activities. He was also seen by PT and recommended rehab but he declined, however agrees for home health. Physical Exam Physical Exam: General: Sitting comfortably in chair, not in distress, on NC HEENT: EOMI, LYNNETTE, MMM Chest: Fair but decreased breath sounds with basilar rales, no wheezes CVS: Regular rate and rhythm, normal heart sounds, no murmur Abdomen: Soft, non tender, not distended, normal bowel sounds Neuro: Awake, alert, oriented, conversing well, non focal Extremities: 3+ LE edema R>L with weeping on right medial leg covered with dressing. Cellulitis RLE improving. Results & Data Results & Data ([facility]) Vital Signs (Past 12 Hours) Vital Signs Temp Pulse Pulse Pulse Pulse Pulse Resp 09/17/21 15:33 36.4 C L 68 20 09/17/21 15:09 83 18 09/17/21 13:51 09/17/21 13:44 09/17/21 12:56 36.3 C L 71 19 09/17/21 12:05 88 82 88 64 09/17/21 11:59 84 20 09/17/21 07:29 09/17/21 07:28 36.6 C 53 L 22 09/17/21 07:01 63 20 Resp Resp Resp Resp BP Pulse Ox Pulse Ox 09/17/21 15:33 125/64 92 09/17/21 15:09 94 09/17/21 13:51 09/17/21 13:44 92 09/17/21 12:56 105/62 92 09/17/21 12:05 26 H 18 86 L 09/17/21 11:59 90 09/17/21 07:29 09/17/21 07:28 126/68 91 09/17/21 07:01 95 Pulse Ox Pulse Ox Pulse Ox Pulse Ox Pulse Ox Pulse Ox O2 Del Method 09/17/21 15:33 Nasal Cannula 09/17/21 15:09 Nasal Cannula 09/17/21 13:51 92 87 L 87 L 09/17/21 13:44 09/17/21 12:56 Nasal Cannula 09/17/21 12:05 90 84 L 89 L 09/17/21 11:59 Nasal Cannula 09/17/21 07:29 Nasal Cannula 09/17/21 07:28 Nasal Cannula 09/17/21 07:01 Nasal Cannula O2 Flow Rate O2 Flow Rate O2 Flow Rate O2 Flow Rate O2 Flow Rate O2 Flow Rate 09/17/21 15:33 2 09/17/21 15:09 2 09/17/21 13:51 2 0 3 09/17/21 13:44 09/17/21 12:56 09/17/21 12:05 2 3 09/17/21 11:59 3 09/17/21 07:29 2 09/17/21 07:28 3 09/17/21 07:01 2 Laboratory Results Short CBC 09/17/21 Range/Units 06:04 WBC 14.62 H (4.8-10.8) K/ul Hgb 11.1 L (14.0-18.0) g/dl Hct 33.7 L (40.1-51.0) % Plt Count 208 (130-400) K/uL BMP 09/17/21 06:04 Sodium 134 L Potassium 4.2 Chloride 101 Carbon Dioxide 27 BUN 41 H Creatinine 1.76 H Glucose 90 Calcium 8.3 L Medications Administered Current Inpatient Medications Acetaminophen (Acetaminophen 325 Mg Tab) 650 mg PO Q4H PRN PRN Reason: Pain or Fever Stop: 10/15/21 19:15 Albuterol (Albuterol Hfa 8 Gm Inhaler) 1 puffs INH QID PRN PRN Reason: Shortness Of Breath Or Wheezing Stop: 10/15/21 19:15 Albuterol (Albut/Ipratrop 3mg/0.5mg Neb 3 Ml Vial) 3 ml NEB Q4R PARDEEP; Protocol Stop: 10/15/21 19:15 Last Admin: 09/17/21 15:09 Dose: 3 ml Amlodipine Besylate (Amlodipine Besylate 5 Mg Tab) 5 mg PO DAILY PARDEEP Stop: 10/16/21 08:59 Last Admin: 09/17/21 08:15 Dose: 5 mg Aspirin (Aspirin 81 Mg Ectab) 81 mg PO DAILY PARDEEP Stop: 10/16/21 08:59 Last Admin: 09/17/21 08:15 Dose: 81 mg Atenolol (Atenolol 25 Mg Tablet) 12.5 mg PO DAILY PARDEEP Stop: 10/16/21 08:59 Last Admin: 09/17/21 08:14 Dose: 12.5 mg Citalopram Hydrobromide (Citalopram 20 Mg Tab) 60 mg PO DAILY PARDEEP Stop: 10/16/21 08:59 Last Admin: 09/17/21 08:14 Dose: 60 mg Enoxaparin Sodium (Enoxaparin Inj 40 Mg/0.4 Ml Syr) 40 mg SQ Q24H PARDEEP Stop: 10/15/21 19:59 Last Admin: 09/16/21 19:34 Dose: 40 mg Famotidine (Famotidine 20 Mg Tab) 20 mg PO DAILY PARDEEP Stop: 10/16/21 08:59 Last Admin: 09/17/21 08:14 Dose: 20 mg Fluticasone Furoate (Fluticasone Furoate 100mcg 14 Puffs/Inhaler) 1 puffs INH DAILY PARDEEP Stop: 10/16/21 08:59 Last Admin: 09/17/21 08:17 Dose: 1 puffs Furosemide (Furosemide 40 Mg/4 Ml Vial) 60 mg IV BID17 PARDEEP Stop: 10/17/21 16:59 Ceftriaxone Sodium 2,000 mg/ (Dextrose) 70 mls @ 100 mls/hr IV DAILY PARDEEP; Protocol Stop: 09/23/21 08:59 Last Infusion: 09/17/21 09:00 Dose: Infused Doxycycline Hyclate 100 mg/ (Dextrose) 110 mls @ 50 mls/hr IV Q12H PARDEEP Stop: 09/22/21 19:59 Last Infusion: 09/17/21 10:12 Dose: Infused Levothyroxine Sodium (Levothyroxine Sodium 50 Mcg Tablet) 50 mcg PO DAILYBB PARDEEP Stop: 10/16/21 06:29 Last Admin: 09/17/21 05:40 Dose: 50 mcg Losartan Potassium (Losartan Potassium 50 Mg Tab) 100 mg PO DAILY PARDEEP Stop: 10/16/21 08:59 Last Admin: 09/16/21 08:08 Dose: 100 mg Polyethylene Glycol (Polyethylene (Miralax) 17 Gm Pack) 17 gm PO DAILY PRN PRN Reason: Constipation Stop: 10/15/21 19:15 Pravastatin Sodium (Pravastatin Sod 40 Mg Tab) 80 mg PO DAILY PARDEEP Stop: 10/16/21 08:59 Last Admin: 09/17/21 08:16 Dose: 80 mg Prednisone (Prednisone 20 Mg Tab) 40 mg PO DAILY PARDEEP Stop: 10/16/21 08:59 Last Admin: 09/17/21 08:15 Dose: 40 mg Tamsulosin HCl (Tamsulosin Hcl 0.4 Mg Cap) 0.4 mg PO MOWEFR@0900 PARDEEP Stop: 10/18/21 08:59 Terazosin HCl (Terazosin Hcl 5 Mg Cap) 10 mg PO HS PARDEEP Stop: 10/15/21 20:59 Last Admin: 09/16/21 21:56 Dose: 10 mg Umeclidinium/Vilanterol (Umeclidinium/Vilanterol 62.5/25mcg 7 Puffs/Inhaler) 1 puffs INH DAILY PARDEEP Stop: 10/16/21 08:59 Last Admin: 09/17/21 08:16 Dose: 1 puffs Vitamin B Complex (Vitamin B Complex Tab) 1 tab PO DAILY PARDEEP Stop: 10/16/21 08:59 Last Admin: 09/17/21 08:16 Dose: 1 tab (1) Pneumonia Laterality: unspecified laterality Lung location: unspecified part of lung Pneumonia type: due to unspecified organism Qualified Code(s): J18.9 - Pneumonia, unspecified organism
[2021-09-17] MEDS: FUROSEMIDE 40 MG/4 ML VIAL IV SCH (16:45)
[2021-09-17] MEDS: TERAZOSIN HCL 5 MG CAP PO SCH (20:23)
[2021-09-17] MEDS: ENOXAPARIN INJ 40 MG/0.4 ML SYR SQ SCH (20:23)
[2021-09-17] MEDS: MELATONIN 3 MG TAB PO PRN (22:15)
[2021-09-18] MEDS: ALBUT/IPRATROP 3MG/0.5MG NEB 3 ML VIAL NEB SCH ×6 (02:18→22:35)
[2021-09-18] MEDS: LEVOTHYROXINE SODIUM 50 MCG TABLET PO SCH (05:20)
[2021-09-18 07:12] LABS: Hematocrit (blood only) 33.1 % (40.1-51.0); Hemoglobin 10.9 g/dl (14.0-18.0); Mean Corpuscular Hemoglobin 29.3 pg (25.0-34.0); Mean Corpuscular Hgb Conc 32.9 g/dL (32.0-36.0); Mean Platelet Volume 10.9 fL (9.4-12.4); Platelet Count 204 K/uL (130-400); RDW Coefficient of Variation 14.8 % (11.5-14.5); RDW Standard Deviation 48.5 fL (36.4-46.3); Red Blood Count 3.72 M/uL (4.63-6.08); White Blood Count 11.09 K/ul (4.8-10.8)
[2021-09-18 07:56] LABS: BUN Creatinine Ratio 27.3 (10-20); Calcium 8.3 mg/dl (8.5-10.1); Creatinine Clr Calc Pharmacy 41.7 ml/min; Est GFR (African American) 43.2 ml/min; Est GFR (Non-African American) 37.3 ml/min; Magnesium 1.9 mg/dl (1.7-2.4); Potassium 3.8 mmol/L (3.5-5.1)
[2021-09-18] MEDS: ATENOLOL 25 MG TABLET PO SCH (08:25)
[2021-09-18] MEDS: predniSONE 20 MG TAB PO SCH (08:25)
[2021-09-18] MEDS: ASPIRIN 81 MG ECTAB PO SCH (08:25)
[2021-09-18] MEDS: CITALOPRAM 20 MG TAB PO SCH (08:25)
[2021-09-18] MEDS: VITAMIN B COMPLEX TAB PO SCH (08:25)
[2021-09-18] MEDS: PRAVASTATIN SOD 40 MG TAB PO SCH (08:25)
[2021-09-18] MEDS: FAMOTIDINE 20 MG TAB PO SCH (08:25)
[2021-09-18] MEDS: amLODIPine BESYLATE 5 MG TAB PO SCH (08:25)
[2021-09-18] MEDS: FLUTICASONE FUROATE 100MCG 14 PUFFS/INHALER INH SCH (08:26)
[2021-09-18] MEDS: UMECLIDINIUM/VILANTEROL 62.5/25MCG 7 PUFFS/INHALER INH SCH (08:35)
[2021-09-18] MEDS: cefTRIAXone SODIUM 2,000 MG in DEXTROSE 5% 50 ML IV SCH (08:35)
[2021-09-18] MEDS: DOXYCYCLINE HYCLATE 100 MG in DEXTROSE 5% 100 ML IV SCH (08:36)
[2021-09-18] MEDS: FUROSEMIDE 40 MG/4 ML VIAL IV SCH ×2 (08:42→16:32)
[2021-09-18] MEDS ORDERED: TAMSULOSIN HCL 0.4 MG CAP PO SCH (09:00)
--- NOTE | 2021-09-18 17:46 | Hospitalist Progress Note ---
Date of Service September 18, 2021 Assessment & Plan (1) Acute respiratory failure with hypoxia: (2) Acute exacerbation of chronic obstructive pulmonary disease: (3) Volume overload: (4) Pneumonia: (5) Cellulitis of leg, right: (6) Adrenal tumor: (7) CAD (coronary artery disease): (8) CKD (chronic kidney disease), stage III: (9) Hypertension: (10) Hypothyroidism: (11) MARY ALICE (obstructive sleep apnea): (12) Nocturnal hypoxemia: Plan 80 year old male with h/o COPD who presented to the ED with worsening shortness of breath for few days along with increasing leg swelling and non productive cough. On levaquin course as OP per patient. Oxygen saturation noted to be in upper 80s per EMS. CTA chest 09/15 1. No evidence for pulmonary embolus. 2. Significant increase in size in a heterogeneous mass within the left upper quadrant measuring 14 x 11 cm. This appears to arise from the left adrenal gland and is highly suspicious for an adrenal cortical carcinoma, metastasis, or pheochromocytoma. Urology consultation recommended. 3. There are scattered patchy and nodular airspace opacities within bilateral mid to lower lung zones. This likely represents a pneumonia could be due to aspiration. 4. Scattered peripheral pulmonary nodules within the mid to lower lung zones which could be due to the suspected infectious process. However, 3-[address] follow-up recommended to ensure resolution can't exclude the possibility of metastases. US RLE - no DVT Acute respiratory failure with hypoxia with PNA, COPD and acute diastolic CHF- has oxygen at home but does not use, noted to be in upper 80s and now on NC - BNP 981, WBC 10, Hb 11.6. D dimer significantly elevated but no DVT PE in US and CT. Echo reviewed- normal EF but diastolic dysfunction - Continue antibiotics for PNA, iv lasix, prednisone - Continue supplemental oxygen, wean down as tolerated - Needs 3 L/min oxygen with activities per 2 step O2 eval Acute on chronic diastolic CHF with dyspnea and bilateral LE edema - BNP 981->284, Echo with EF 55-60% but grade 1 diastolic dysfunction. No DVT in RLE. - Still with 3+ LE edema but having good diuresis with increasing dose of lasix- will continue iv lasix 60 bid for now - Recommend compression stocking and leg elevation. - Daily weight, continue I an Os. Monitor response, renal function and electrolytes. Bilateral PNA- seen in CT as above. Denies any aspiration issues. Sputum clx with normal aamir, Blood clx negative. On Levaquin as OP, started here on rocephin/doxy which we will continue for now. RLE cellulitis- Improving, Already on antibiotics as above. Will continue and monitor. COPD- No wheezes appreciated. On ABx, prednisone which we will continue. Continue trelegy. Lung nodules- infectious vs ?mets- recommended 3-[address] chest to ensure resolution vs mets. CKD3 with elevated Cr- baseline Cr of around 1.5, currently 1.7 and stale on diuresis. Losartan remains on hold. Monitor with lasix. Avoid nephrotoxics. HTN- hold losartan d/t elevated Cr. BP stable. Continue amlodipine increased dose. Continue atenolol, terazosin, lasix Left adrenal mass- first seen in 2015 and now shows increasing size as noted above - Spoke with urology Dr Lopez who recommended OP work up. They will see him as OP sooner. CAD s/p stenting 2007- stable, on ASA, statin, betablocker MARY ALICE- non compliant with CPAP hs. Hypothyroidism- continue synthroid DVT ppx- sc lovenox Dispo- On iv lasix for volume optimization. Admission and Anticipated Discharge Date Admission Date: September 15, 2021 Subjective No new issues. He is again requesting to go home but agreeable to stay overnight for more iv diuresis and iv antibiotics. States his breathing gets worse when he is upset. No fever, chills, nausea, vomiting. Physical Exam Physical Exam: General: Sitting comfortably in chair, not in distress, on NC HEENT: EOMI, LYNNETTE, MMM Chest: Fair but decreased breath sounds with basilar rales, no wheezes CVS: Regular rate and rhythm, normal heart sounds, no murmur Abdomen: Soft, non tender, not distended, normal bowel sounds Neuro: Awake, alert, oriented, conversing well, non focal Extremities: 3+ LE edema R>L with weeping on right medial leg covered with dressing. Cellulitis RLE improving. Results & Data Results & Data ([facility]) Vital Signs (Past 12 Hours) Vital Signs Temp Pulse Pulse Resp BP Pulse Ox O2 Del Method 09/18/21 15:33 36.6 C 76 24 135/74 95 Nasal Cannula 09/18/21 15:03 75 20 95 Nasal Cannula 09/18/21 14:45 69 09/18/21 11:56 36.3 C L 66 26 H 124/67 93 Nasal Cannula 09/18/21 10:49 78 20 94 Nasal Cannula 09/18/21 10:09 Nasal Cannula 09/18/21 08:00 56 L 09/18/21 08:09 36.3 C L 65 22 123/70 90 Nasal Cannula 09/18/21 07:18 51 L 16 96 Nasal Cannula O2 Flow Rate 09/18/21 15:33 2.0 09/18/21 15:03 2 09/18/21 14:45 09/18/21 11:56 2.0 09/18/21 10:49 2 09/18/21 10:09 2 09/18/21 08:00 09/18/21 08:09 2.0 09/18/21 07:18 2 Laboratory Results Short CBC 09/18/21 Range/Units 06:39 WBC 11.09 H (4.8-10.8) K/ul Hgb 10.9 L (14.0-18.0) g/dl Hct 33.1 L (40.1-51.0) % Plt Count 204 (130-400) K/uL BMP 09/18/21 06:39 Sodium 134 L Potassium 3.8 Chloride 100 Carbon Dioxide 28 BUN 47 H Creatinine 1.72 H Glucose 83 Calcium 8.3 L Medications Administered Current Inpatient Medications Acetaminophen (Acetaminophen 325 Mg Tab) 650 mg PO Q4H PRN PRN Reason: Pain or Fever Stop: 10/15/21 19:15 Albuterol (Albuterol Hfa 8 Gm Inhaler) 1 puffs INH QID PRN PRN Reason: Shortness Of Breath Or Wheezing Stop: 10/15/21 19:15 Albuterol (Albut/Ipratrop 3mg/0.5mg Neb 3 Ml Vial) 3 ml NEB Q4R PARDEEP; Protocol Stop: 10/15/21 19:15 Last Admin: 09/18/21 14:56 Dose: 3 ml Amlodipine Besylate (Amlodipine Besylate 5 Mg Tab) 5 mg PO DAILY REPLACED BY [facility] Stop: 10/16/21 08:59 Last Admin: 09/18/21 08:25 Dose: 5 mg Aspirin (Aspirin 81 Mg Ectab) 81 mg PO DAILY REPLACED BY [facility] Stop: 10/16/21 08:59 Last Admin: 09/18/21 08:25 Dose: 81 mg Atenolol (Atenolol 25 Mg Tablet) 12.5 mg PO DAILY PARDEEP Stop: 10/16/21 08:59 Last Admin: 09/18/21 08:25 Dose: 12.5 mg Citalopram Hydrobromide (Citalopram 20 Mg Tab) 60 mg PO DAILY PARDEEP Stop: 10/16/21 08:59 Last Admin: 09/18/21 08:25 Dose: 60 mg Doxycycline Hyclate (Doxycycline Hyclate 100 Mg Cap) 100 mg PO BID PARDEEP Stop: 09/25/21 20:59 Enoxaparin Sodium (Enoxaparin Inj 40 Mg/0.4 Ml Syr) 40 mg SQ Q24H PARDEEP Stop: 10/15/21 19:59 Last Admin: 09/17/21 20:23 Dose: 40 mg Famotidine (Famotidine 20 Mg Tab) 20 mg PO DAILY PARDEEP Stop: 10/16/21 08:59 Last Admin: 09/18/21 08:25 Dose: 20 mg Fluticasone Furoate (Fluticasone Furoate 100mcg 14 Puffs/Inhaler) 1 puffs INH DAILY PARDEEP Stop: 10/16/21 08:59 Last Admin: 09/18/21 08:26 Dose: 1 puffs Furosemide (Furosemide 40 Mg/4 Ml Vial) 60 mg IV BID17 PARDEEP Stop: 10/17/21 16:59 Last Admin: 09/18/21 16:32 Dose: 60 mg Ceftriaxone Sodium 2,000 mg/ (Dextrose) 70 mls @ 100 mls/hr IV DAILY PARDEEP; Protocol Stop: 09/23/21 08:59 Last Infusion: 09/18/21 11:41 Dose: Infused Levothyroxine Sodium (Levothyroxine Sodium 50 Mcg Tablet) 50 mcg PO DAILYBB REPLACED BY [facility] Stop: 10/16/21 06:29 Last Admin: 09/18/21 05:20 Dose: 50 mcg Losartan Potassium (Losartan Potassium 50 Mg Tab) 100 mg PO DAILY PARDEEP Stop: 10/16/21 08:59 Last Admin: 09/16/21 08:08 Dose: 100 mg Melatonin (Melatonin 3 Mg Tab) 3 mg PO HS PRN PRN Reason: Sleep Stop: 10/17/21 21:54 Last Admin: 09/17/21 22:15 Dose: 3 mg Polyethylene Glycol (Polyethylene (Miralax) 17 Gm Pack) 17 gm PO DAILY PRN PRN Reason: Constipation Stop: 10/15/21 19:15 Pravastatin Sodium (Pravastatin Sod 40 Mg Tab) 80 mg PO DAILY PARDEEP Stop: 10/16/21 08:59 Last Admin: 09/18/21 08:25 Dose: 80 mg Prednisone (Prednisone 20 Mg Tab) 40 mg PO DAILY PARDEEP Stop: 10/16/21 08:59 Last Admin: 09/18/21 08:25 Dose: 40 mg Tamsulosin HCl (Tamsulosin Hcl 0.4 Mg Cap) 0.4 mg PO MOWEFR@0900 PARDEEP Stop: 10/18/21 08:59 Last Admin: 09/18/21 08:25 Dose: 0.4 mg Terazosin HCl (Terazosin Hcl 5 Mg Cap) 10 mg PO HS REPLACED BY [facility] Stop: 10/15/21 20:59 Last Admin: 09/17/21 20:23 Dose: 10 mg Umeclidinium/Vilanterol (Umeclidinium/Vilanterol 62.5/25mcg 7 Puffs/Inhaler) 1 puffs INH DAILY REPLACED BY [facility] Stop: 10/16/21 08:59 Last Admin: 09/18/21 08:35 Dose: 1 puffs Vitamin B Complex (Vitamin B Complex Tab) 1 tab PO DAILY REPLACED BY [facility] Stop: 10/16/21 08:59 Last Admin: 09/18/21 08:25 Dose: 1 tab (1) Pneumonia Laterality: unspecified laterality Lung location: unspecified part of lung Pneumonia type: due to unspecified organism Qualified Code(s): J18.9 - Pneumonia, unspecified organism
[2021-09-18] MEDS: DOXYCYCLINE HYCLATE 100 MG CAP PO SCH (19:55)
[2021-09-18] MEDS: TERAZOSIN HCL 5 MG CAP PO SCH (19:55)
[2021-09-18] MEDS: ENOXAPARIN INJ 40 MG/0.4 ML SYR SQ SCH (19:55)
[2021-09-18] MEDS: MELATONIN 3 MG TAB PO PRN (21:45)
[2021-09-19] MEDS: ALBUT/IPRATROP 3MG/0.5MG NEB 3 ML VIAL NEB SCH ×3 (02:14→11:01)
[2021-09-19] MEDS: LEVOTHYROXINE SODIUM 50 MCG TABLET PO SCH (06:20)
[2021-09-19 07:33] LABS: Hematocrit (blood only) 34.4 % (40.1-51.0); Hemoglobin 11.5 g/dl (14.0-18.0); Mean Corpuscular Hgb Conc 33.4 g/dL (32.0-36.0); Mean Corpuscular Volume 89.8 fL (80.0-100.0); Mean Platelet Volume 11.2 fL (9.4-12.4); Platelet Count 211 K/uL (130-400); RDW Coefficient of Variation 14.7 % (11.5-14.5); Red Blood Count 3.83 M/uL (4.63-6.08); White Blood Count 9.91 K/ul (4.8-10.8)
[2021-09-19 07:58] LABS: Calcium 8.5 mg/dl (8.5-10.1); Creatinine Clr Calc Pharmacy 40.5 ml/min; Est GFR (Non-African American) 36.2 ml/min; Potassium 3.9 mmol/L (3.5-5.1)
[2021-09-19] MEDS: ATENOLOL 25 MG TABLET PO SCH (08:58)
[2021-09-19] MEDS: PRAVASTATIN SOD 40 MG TAB PO SCH (08:58)
[2021-09-19] MEDS: CITALOPRAM 20 MG TAB PO SCH (08:58)
[2021-09-19] MEDS: amLODIPine BESYLATE 5 MG TAB PO SCH (08:58)
[2021-09-19] MEDS: VITAMIN B COMPLEX TAB PO SCH (08:58)
[2021-09-19] MEDS: DOXYCYCLINE HYCLATE 100 MG CAP PO SCH (08:58)
[2021-09-19] MEDS: predniSONE 20 MG TAB PO SCH (08:58)
[2021-09-19] MEDS: ASPIRIN 81 MG ECTAB PO SCH (08:59)
[2021-09-19] MEDS: FLUTICASONE FUROATE 100MCG 14 PUFFS/INHALER INH SCH (08:59)
[2021-09-19] MEDS: UMECLIDINIUM/VILANTEROL 62.5/25MCG 7 PUFFS/INHALER INH SCH (08:59)
[2021-09-19] MEDS: FAMOTIDINE 20 MG TAB PO SCH (08:59)
[2021-09-19] MEDS: FUROSEMIDE 40 MG/4 ML VIAL IV SCH (08:59)
[2021-09-19] MEDS: cefTRIAXone SODIUM 2,000 MG in DEXTROSE 5% 50 ML IV SCH (09:01)
--- NOTE | 2021-09-19 17:08 | Discharge Summary ---
Date of Service September 19, 2021 Admission HPI Per Admitting Provider This is a 80-year-old male with PMH of severe COPD and obstructive sleep apnea, CAD (PCI to RCA in 2007), hypertension, hyperlipidemia, incidentally noted renal mass who presents with worsening shortness of breath over the past few days. Endorses nonproductive cough and swelling in legs which is worse in right. Had a cold a week ago and then started rescue antibiotic Levaquin which she has completed all but 2 days of. Also noting increased swelling in right lower extremity over the past 2 weeks with redness and warmth as well as clear drainage from open wound on back of his heel. Has not wanted to seek medical attention for this. When shortness of breath was more progressive earlier today, patient called 911 with oxygen saturation noted to be in the upper 80s. Received breathing treatment and IV Solu-Medrol prior to arrival. Has been prescribed 2 L oxygen at night with CPAP but is noncompliant. Lives alone and manages medications. Poor historian. Denies any fever or chills. No congestion, chest pain or wheezing. No nausea, vomiting or abdominal pain. No dysuria. Endorses frequent urination. No diarrhea or constipation. Admission Exam Per Admitting Provider General Appearance:WD/WN, vitals as above, NAD, sitting up in chair, obese, conversational dyspnea Head: normocephalic, atraumatic Eyes:normal inspection, PERRL, conjunctivae normal, anicteric sclerae ENT: external ear and nose normal, oropharynx normal Neck: normal visual inspection, trachea midline, no thyromegaly Respiratory:Increased respiratory effort, bibasilar crackles, poor air movement bilaterally, no wheezing. + accessory muscle use Cardiovascular: regular rate, rhythm, no murmur, normal peripheral pulses, 2-3+ pitting edema RLE, 1+ LLE Chest: normal inspection of chest Abdomen/GI: normal bowel sounds, soft but distended, nontender, no hepatosplenomegaly Extremities/Musculoskeletal: no cyanosis or clubbing, extremities motor strength 5/5 Neurologic: PERRL, EOMI, accommodation nl, no face palsy, no dysarthria, CN's II-XI intact bilaterally and moves all extremities Psychiatric:A+Ox3, euthymic affect Skin: no rashes, normal color, warm/dry. RLE with erythema and warmth overlying extremity with serous drainage. Open wound on posterior aspect near heal, + foul odor to drainage Principal Diagnosis Acute hypoxic respiratory failure due to PNA, COPD exacerbation, diastolic CHF; RLE cellulitis Discharge Exam General: Sitting comfortably in chair, not in distress, on NC HEENT: EOMI, LYNNETTE, MMM Chest: Fair but decreased breath sounds with basilar rales, no wheezes CVS: Regular rate and rhythm, normal heart sounds, no murmur Abdomen: Soft, non tender, not distended, normal bowel sounds Neuro: Awake, alert, oriented, conversing well, non focal Extremities: 3+ LE edema R>L. Cellulitis RLE improving. Discharge Data Allergies Allergy/AdvReac Type Severity Reaction Status Date / Time ROBERT Inhibitors Allergy Unknown unk Verified 06/13/11 10:38 atorvastatin Allergy Unknown muscle pain Verified 06/13/11 10:38 escitalopram Allergy Unknown unk Verified 06/13/11 10:38 Iodinated Contrast Media Allergy Unknown unk Verified 06/13/11 10:38 rosuvastatin Allergy Unknown muscle pain Verified 06/13/11 10:38 ibuprofen AdvReac Unknown nausea/vomi Verified 06/13/11 10:38 ting Ordered Studies 09/15/21 15:23 CT angio chest PE protocol Stat 09/15/21 17:01 US venous doppler LE RT Stat Laboratory Results WBC 9.91 K/ul (4.8-10.8) 09/19/21 06:40 RBC 3.83 M/uL (4.63-6.08) L 09/19/21 06:40 Hgb 11.5 g/dl (14.0-18.0) L 09/19/21 06:40 Hct 34.4 % (40.1-51.0) L 09/19/21 06:40 MCV 89.8 fL (80.0-100.0) 09/19/21 06:40 MCH 30.0 pg (25.0-34.0) 09/19/21 06:40 MCHC 33.4 g/dL (32.0-36.0) 09/19/21 06:40 RDW Std Deviation 48.0 fL (36.4-46.3) H 09/19/21 06:40 RDW Coeff of Louis 14.7 % (11.5-14.5) H 09/19/21 06:40 Plt Count 211 K/uL (130-400) 09/19/21 06:40 MPV 11.2 fL (9.4-12.4) 09/19/21 06:40 Immature Gran % (Auto) 1.4 % 09/15/21 14:38 Neut % (Auto) 80.8 % 09/15/21 14:38 Lymph % (Auto) 12.0 % 09/15/21 14:38 [place] % (Auto) 5.3 % 09/15/21 14:38 Eos % (Auto) 0.2 % 09/15/21 14:38 Baso % (Auto) 0.3 % 09/15/21 14:38 Neut # (Auto) 8.51 K/uL (1.4-6.5) H 09/15/21 14:38 Lymph # (Auto) 1.27 K/uL (1.2-3.4) 09/15/21 14:38 Oxford # (Auto) 0.56 K/uL (0.24-0.82) 09/15/21 14:38 Eos # (Auto) 0.02 K/uL (0-0.50) 09/15/21 14:38 Baso # (Auto) 0.03 K/uL (0-0.2) 09/15/21 14:38 Immature Gran # (Auto) 0.15 K/uL (0.00-0.02) H 09/15/21 14:38 PT 13.2 Seconds (9.0-12.0) H 09/15/21 14:38 INR 1.3 (0.9-1.1) H 09/15/21 14:38 APTT 25.6 Seconds (21.0-31.0) 09/15/21 14:38 PTT Ratio 0.9 09/15/21 14:38 D-Dimer 36647 ug/L FEU (0-500) H* 09/15/21 14:38 VBG pH 7.41 (7.36-7.41) 09/15/21 15:13 VBG pCO2 42 mmHg (38-50) 09/15/21 15:13 VBG pO2 34 mmHg 09/15/21 15:13 VBG HCO3 27 mmol/L 09/15/21 15:13 VBG O2 Saturation < 60.0 % 09/15/21 15:13 VBG Base Excess 1.7 mEq/L 09/15/21 15:13 Sodium 135 mmol/L (136-145) L 09/19/21 06:40 Potassium 3.9 mmol/L (3.5-5.1) 09/19/21 06:40 Chloride 100 mmol/L (98-107) 09/19/21 06:40 Carbon Dioxide 30 mmol/L (21-32) 09/19/21 06:40 Anion Gap 5 (3-11) 09/19/21 06:40 BUN 51 mg/dl (6-23) H 09/19/21 06:40 Creatinine 1.76 mg/dl (0.6-1.4) H 09/19/21 06:40 Est Cr Clr Drug Dosing 40.5 ml/min 09/19/21 06:40 Est GFR ( Amer) 42.0 ml/min 09/19/21 06:40 Est GFR (Non-Af Amer) 36.2 ml/min 09/19/21 06:40 BUN/Creatinine Ratio 29.0 (10-20) H 09/19/21 06:40 Glucose 79 mg/dl (70-99(Fasting)) 09/19/21 06:40 POC Glucose 164 mg/dl (70-99) H 09/15/21 19:04 Estimat Average Glucose 123 mg/dl 09/16/21 06:43 Hemoglobin A1c 5.9 % (4.5-5.6) H 09/16/21 06:43 Calcium 8.5 mg/dl (8.5-10.1) 09/19/21 06:40 Magnesium 2.0 mg/dl (1.7-2.4) 09/19/21 06:40 Total Bilirubin 0.7 mg/dl (0.2-1.0) 09/15/21 14:38 AST 14 U/L (13-39) 09/15/21 14:38 ALT 11 U/L (7-52) 09/15/21 14:38 Alkaline Phosphatase 66 U/L (34-104) 09/15/21 14:38 Troponin I High Sens 16.3 pg/ml (0-20) 09/15/21 14:38 B-Natriuretic Peptide 284 pg/ml (0-100) H 09/18/21 06:39 Total Protein 6.1 gm/dl (6.0-8.3) 09/15/21 14:38 Albumin 3.0 gm/dl (3.4-5.0) L 09/15/21 14:38 Globulin 3.1 gm/dl (2.5-4.0) 09/15/21 14:38 Albumin/Globulin Ratio 1.0 (0.9-2) 09/15/21 14:38 Urine Color Yellow 09/16/21 00:00 Urine Appearance Clear (Clear) 09/16/21 00:00 Urine pH 5.0 (4.5-7.5) 09/16/21 00:00 Ur Specific Desdemona 1.020 (1.000-1.030) 09/16/21 00:00 Urine Protein Trace (Negative) H 09/16/21 00:00 Urine Glucose (UA) Negative (Negative) 09/16/21 00:00 Urine Ketones Negative (Negative) 09/16/21 00:00 Urine Blood 2+ (Negative) H 09/16/21 00:00 Urine Nitrite Negative (Negative) 09/16/21 00:00 Urine Bilirubin Negative (Negative) 09/16/21 00:00 Urine Urobilinogen Negative (Negative) 09/16/21 00:00 Ur Leukocyte Esterase Trace (Negative) H 09/16/21 00:00 Urine WBC (Auto) 1-5 /hpf (0-5) 09/16/21 00:00 Urine RBC (Auto) 0-4 /hpf (0-4) 09/16/21 00:00 U Hyaline Cast (Auto) 1-5 /lpf (0-5) 09/16/21 00:00 U Epithel Cells (Auto) 10-20 /lpf (0-5) H 09/16/21 00:00 Urine Bacteria (Auto) Negative (Negative) 09/16/21 00:00 SARS-CoV-2 (PCR) NEGATIVE (Negative) 09/15/21 14:38 Influenza Type A (PCR) Negative (Neg) 09/15/21 14:38 Influenza Type B (PCR) Negative (Neg) 09/15/21 14:38 RSV (RT-PCR) Negative (Neg) 09/15/21 14:38 Impressions Shoulder X-Ray 09/15/21 14:18 XR shoulder RT min 2V routine CLINICAL HISTORY: pain TECHNIQUE: 3 views of the right shoulder were obtained. Comparison: None available at the time of this dictation. FINDINGS: There is no evidence of an acute fracture. Joint spaces are well-preserved. The overlying soft tissues are unremarkable. The visualized portions of the lungs are clear. IMPRESSION: No evidence of acute osseous injury. ACT 112: Negative or not required by law. Electronically signed by: Cole Pyle M.D. 09/15/2021 4:15 PM Chest CTA 09/15/21 15:23 CHEST CTA for PULMONARY ARTERIES CT DOSE: 910.50 mGy.cm HISTORY: Shortness of breath. TECHNIQUE: Multiaxial CT images of the chest were performed following the intravenous administration of contrast to evaluate the pulmonary arteries. Maximal intensity projection images were also obtained. A dose lowering technique was utilized adhering to the principles of ALARA. COMPARISON STUDY: Abdomen and pelvis CT 04/21/2017. FINDINGS: There are few small hypodense lesions within the liver with the largest measuring 1.7 cm. These are similar to the prior study but are incompletely characterized on this single phase examination. The spleen and right adrenal gland are unremarkable. Significant increase in size in the circumscribed heterogeneous mass within the left upper quadrant. This is partially visualized on this study and measures 14 x 11 cm. This previously measured 6.5 x 5.5 cm. This appears to reside from the left adrenal gland. This slightly displaces the left kidney posteriorly. This also results in anterior displacement of the pancreatic tail. No mediastinal or hilar lymphadenopathy. The heart remains top normal in size. No pleural or pericardial effusions. Normal esophagus. Mild calcified plaque within the normal caliber thoracic aorta. No evidence for an aortic dissection. There is severe calcified plaque within the coronary arteries. Nondiagnostic evaluation of the bilateral lower lobe, right middle lobe, and lingular subsegmental pulmonary arteries due to the respiratory motion artifact. However, the remaining pulmonary arteries show no filling defects to suggest a pulmonary embolus. Postoperative changes within the left shoulder. No pneumothorax. Emphysema. Small amount of mucoid material within the trachea and left mainstem bronchus. There are scattered patchy and nodular airspace opacities within bilateral mid to lower lung zones. This most pronounced within the left lower lobe. Dominant nodular density within the periphery of the left upper lobe on image 164 measures 1 cm. IMPRESSION: 1. No evidence for pulmonary embolus. 2. Significant increase in size in a heterogeneous mass within the left upper quadrant measuring 14 x 11 cm. This appears to arise from the left adrenal gland and is highly suspicious for an adrenal cortical carcinoma, metastasis, or pheochromocytoma. Urology consultation recommended. 3. There are scattered patchy and nodular airspace opacities within bilateral mid to lower lung zones. This likely represents a pneumonia could be due to aspi ration. 4. Scattered peripheral pulmonary nodules within the mid to lower lung zones which could be due to the suspected infectious process. However, 3-[address] follow-up recommended to ensure resolution can't exclude the possibility of metastases. ACT 112: Positive. There are findings on this exam that require communication between the performing entity and the patient following Patient Test Result Information Act ([place] Act 112) guidelines. Electronically signed by: Juan Pablo Chu M.D. 09/15/2021 4:52 PM Venous Doppler Study 09/15/21 17:01 US venous doppler LE RT CLINICAL HISTORY: swelling TECHNIQUE: Right lower extremity real-time compression venous ultrasound with Color Doppler imaging. Utilizing real-time ultrasonic imaging multiple real time high-resolution ultrasonic images with compression and noncompression maneuvers of the deep venous system in addition to color doppler imaging were performed from the common femoral vein through the proximal calf veins. COMPARISON: None available at the time of this dictation. FINDINGS: Currently there is normal compressibility of the deep venous system from the common femoral vein through the proximal calf veins. No superficial venous thrombosis is identified. Impression: No evidence of deep venous thrombus. ACT 112: Negative or not required by law. Electronically signed by: Cole Pyle M.D. 09/15/2021 7:04 PM Hospital Course (1) Acute respiratory failure with hypoxia: (2) Acute exacerbation of chronic obstructive pulmonary disease: (3) Volume overload: (4) Pneumonia: (5) Cellulitis of leg, right: (6) Adrenal tumor: (7) CAD (coronary artery disease): (8) CKD (chronic kidney disease), stage III: (9) Hypertension: (10) Hypothyroidism: (11) MARY ALICE (obstructive sleep apnea): (12) Nocturnal hypoxemia: Plan 80 year old male with h/o COPD who presented to the ED with worsening shortness of breath for few days along with increasing leg swelling and non productive cough. On levaquin course as OP per patient. Oxygen saturation noted to be in upper 80s per EMS. CTA chest 09/15 1. No evidence for pulmonary embolus. 2. Significant increase in size in a heterogeneous mass within the left upper quadrant measuring 14 x 11 cm. This appears to arise from the left adrenal gland and is highly suspicious for an adrenal cortical carcinoma, metastasis, or pheochromocytoma. Urology consultation recommended. 3. There are scattered patchy and nodular airspace opacities within bilateral mid to lower lung zones. This likely represents a pneumonia could be due to aspiration. 4. Scattered peripheral pulmonary nodules within the mid to lower lung zones which could be due to the suspected infectious process. However, 3-[address] follow-up recommended to ensure resolution can't exclude the possibility of metastases. US RLE - no DVT Acute respiratory failure with hypoxia with PNA, COPD and acute diastolic CHF- has oxygen at home but does not use, noted to be in upper 80s and now on NC - BNP 981, WBC 10, Hb 11.6. D dimer significantly elevated but no DVT PE in US and CT. Echo reviewed- normal EF but diastolic dysfunction - Treated with empiric antibiotics for PNA, iv lasix, prednisone with improvement - Continue supplemental oxygen, wean down as tolerated - Needs 3 L/min oxygen with activities per 2 step O2 eval- oxygen was arranged prior to discharge Acute on chronic diastolic CHF with dyspnea and bilateral LE edema - BNP 981->284, Echo with EF 55-60% but grade 1 diastolic dysfunction. No DVT in RLE. - Still with 3+ LE edema but improved and continues to have good diuresis with iv lasix- however he adamantly refused to stay for more lasix for volume optimization- labs stable- weight coming down - Will start on po lasix 40 bid at discharge and recommended repeat BMP in 4-5 days and follow up with PCP for further dose adjustment per response and labs - Recommend daily weight, compression stocking and leg elevation. Bilateral PNA- seen in CT as above. Denies any aspiration issues. Sputum clx with normal aamir, Blood clx negative. On Levaquin as OP, started here on rocephin/doxy->changed to vantin/doxy at discharge to complete the course - Recommended repeat CT chest in 3-6 months to ensure resolution and r/o underlying mets RLE cellulitis- Improving on empiric antibiotics->changed to vantin/doxy at [facility] for 10 more days. might need longer course if slow to resolve given his significant LE edema- Follow up with PCP for the same COPD- No wheezes appreciated. Continue prednisone for 3 more days. Continue trelegy. Lung nodules- infectious vs ?mets- recommended 3-[address] chest to ensure resolution vs mets. CKD3 with elevated Cr- baseline Cr of around 1.5, currently 1.7 and stable on diuresis. Losartan discontinued as BP remains normal off of it and due to CKD on diuresis. Monitor with lasix. Repeat BMP in 4- 5 days and as needed per PCP. HTN- Losartan discontinued. Amlodipine increased to 5 mg daily. Continue atenolol, terazosin, lasix Left adrenal mass- first seen in 2016 and now shows increasing size as noted above - Spoke with urology Dr Lopez who recommended OP work up. They will see him as OP sooner. CAD s/p stenting 2007- stable, on ASA, statin, betablocker MARY ALICE- non compliant with CPAP hs. Hypothyroidism- continue synthroid Patient adamant to go home although I recommended multiple times inpatient stay for more iv diuresis and close monitoring of his renal function and elect rolytes. Home oxygen and home therapy has been arranged. Updated daughter regarding plan of care and reiterated the need for close follow up with PCP, cardiology and urology. Home Health Attestation I certify that this patient is under my care and that I, or a physicians topographical field assistant working with me, had a face to-face encounter that meets the home health [id number] encounter requirements with this patient. The encounter with the patient was in whole, or in part, for the following medical condition, which is the primary reason for home health care (list medical condition): I certify that, based on my findings, the following services are medically necessary home health services: My clinical findings support the need for the above services because: Further, I certify that my clinical findings support that this patient is homebound (i.e. absences from home require considerable and taxing effort and are for medical reasons or mandaeism services or infrequently or of short duration when for other reasons) because: Certification for Home Health Services: Based on the above findings, I certify that this patient is confined to the home and needs intermittent alf care, physical therapy and/or speech therapy or continues to need occupational therapy. The patient is under my care, and I have initiated the establishment of the plan of care. This patient will be followed by a physician who will periodically review the plan of care. Total Time Total Time Spent Total Time Spent (In Minutes): 55 Discharge Plan Discharge Items Patient Disposition: Home - Home Health Services Reason For Visit: ACUTE HYPOXIA, PNA, COPD EXACERBATION Discharge Diagnosis: Acute hypoxic respiratory failure due to PNA, COPD exacerbation, diastolic CHF; RLE cellulitis Activity: Resume your previous activity Non-emergency contact: Primary Care Provider Call non-emergency contact if: you have any medication questions, your symptoms worsen, your pain is not controlled, you have a fever and your wound has increased redness Follow-up/Referrals: Dahlia Real MD [Primary Care Provider] - (Date & Time 09/26/2021 11:20 AM Provider Dahlia Real MD Department General Internal Medicine [facility] ) Diet: Heart Healthy Fluids: 1500ml (6 cups) Addtl Attending Provider Instructions: Continue the antibiotics vantin and doxycycline for 10 more days for the leg infection. If the leg infection does not improve completely by then, your family doctor might extend the duration of antibiotic. Continue lasix 40 mg twice daily with potassium supplementation. Weigh yourself daily. Use compression stockings and keep the leg elevated to decrease the swelling Recommend repeat blood work (BMP, Magnesium) in 4-5 days to ensure the kidney and electrolytes remain stable. Your family doctor will adjust the dose based on the response as well as the blood work. Continue prednisone for 3 more days. Continue inhaler. Continue oxygen and wean down as tolerated- goal oxygen level is 89-92% Your blood pressure is much better here on the change in your medications. Stop your losartan and increase your amlodipine to 5 mg daily. You also have mass in your left adrenal gland above left kidney. See urology doctor for further work up to make sure this is not something serious like cancer Recommend repeat CT chest in 3-6 months to ensure resolution of pneumonia and to ensure there is no underlying mass. Follow up with family doctor, urology and heart doctor Pending Studies at Discharge: No Stand-Alone Forms: My Vascular Closure, Smoking Cessation Medications and DC Order Prescriptions: New doxycycline hyclate 100 mg Capsule 100 mg PO BID Qty: 20 0RF prednisone 20 mg Tablet 40 mg PO DAILY Qty: 3 0RF amlodipine [Norvasc] 5 mg Tablet 5 mg PO DAILY Qty: 30 0RF cefpodoxime 200 mg tablet 400 mg PO Q12H Qty: 40 0RF Rx Instructions: must administer with a meal/food furosemide [Lasix] 40 mg tablet 40 mg PO BID Qty: 60 0RF potassium chloride 10 mEq tablet extended release 10 meq PO BID Qty: 60 0RF Continued citalopram 40 mg tablet 60 mg PO DAILY atenolol 25 mg tablet 12.5 mg PO DAILY famotidine 20 mg Tablet 20 mg PO DAILY pravastatin 80 mg tablet 80 mg PO DAILY tamsulosin 0.4 mg capsule 0.4 mg PO [id number] levothyroxine 50 mcg tablet 50 mcg PO DAILY nitroglycerin [Nitrostat] 0.4 mg Tablet, Sublingual 0.4 mg sublingual UD Rx Instructions: Place under tongue every 5 minutes as needed for CP budesonide 0.5 mg/2 mL suspension for nebulization 0.5 mg inhalation BID Rx Instructions: 1 vial via neb twice daily albuterol sulfate [Ventolin HFA] 90 mcg/actuation Hfa Aerosol Inhaler 1 inh INHALATION QID PRN (Reason: Shortness Of Breath Or Wheezing) terazosin 10 mg capsule 10 mg PO HS vitamin B complex Capsule 1 cap PO DAILY Trelegy Ellipta 100-62.5-25 mcg blister with device 1 inh INHALATION DAILY aspirin 81 mg Capsule 81 mg PO DAILY Discontinued amlodipine 2.5 mg tablet 2.5 mg PO DAILY furosemide 20 mg tablet 20 mg PO Q2D levofloxacin 500 mg tablet 500 mg PO DAILY Rx Instructions: prescribed on 09/07/21 for 10 day course losartan 100 mg tablet 100 mg PO DAILY Discharge Orders: Discharge Order (Routine); Ordered 09/19/21 Ordered By: Jude Garcia Admission Data Admit Date/Time: 09/15/21 18:05 Attending Provider: Jude Garcia Admit Provider: Fe Gayle Primary Care Provider: Dahlia Real Other Providers: [facility],Home [facility] Other Interventions: Discharge Summary Assessment (RN) Last Done: 09/19/21 14:09
[2021-09-21 03:01] LABS: Platelet Estimate #N (Normal)
== END 2021-09-19 15:37 | disposition home or self-care (01) | DRG 193 ==
LOC: ED 14:13 → 2S 18:05 → SUATTDRO 18:05 → 2S 18:35
DX: E03.9 Hypothyroidism, unspecified; Z87.891 Personal history of nicotine dependence; M25.511 Pain in right shoulder; Z83.3 Family history of diabetes mellitus; D49.7 Neoplasm of unspecified behavior of endocrine glands and other parts of nervous system; I13.0 Hypertensive heart and chronic kidney disease with heart failure and stage 1 through stage 4 chronic kidney disease, or unspecified chronic kidney disease; N18.30 Chronic kidney disease, stage 3 unspecified; Z91.041 Radiographic dye allergy status; J96.01 Acute respiratory failure with hypoxia; L03.115 Cellulitis of right lower limb; J44.1 Chronic obstructive pulmonary disease with (acute) exacerbation; J18.9 Pneumonia, unspecified organism; Z79.899 Other long term (current) drug therapy; Z88.6 Allergy status to analgesic agent; I25.10 Atherosclerotic heart disease of native coronary artery without angina pectoris; Z95.5 Presence of coronary angioplasty implant and graft; R91.8 Other nonspecific abnormal finding of lung field; R79.1 Abnormal coagulation profile; Z79.890 Hormone replacement therapy; E78.5 Hyperlipidemia, unspecified; J44.0 Chronic obstructive pulmonary disease with (acute) lower respiratory infection; G47.33 Obstructive sleep apnea (adult) (pediatric); Z91.19 Patient's noncompliance with other medical treatment and regimen; Z79.82 Long term (current) use of aspirin; E11.22 Type 2 diabetes mellitus with diabetic chronic kidney disease; I50.33 Acute on chronic diastolic (congestive) heart failure; Z88.8 Allergy status to other drugs, medicaments and biological substances